=== PATIENT | male | born 1990 | race Caucasian/White ===

== ENCOUNTER 2017-03-04 05:30 | Inpatient (IN) | payer BC ==
[2017-03-04] MEDS ORDERED: HYDROmorphone 1 MG/ML Syringe IVPUSH ONE (06:07)
[2017-03-04] MEDS ORDERED: Ondansetron 4 MG/2 ML SDV IVPUSH ONE (06:07)
[2017-03-04] MEDS ORDERED: Sodium Chloride 0.9% 1,000 ML IV SCH ×2 (06:15→21:00)
[2017-03-04] MEDS ORDERED: Diatrizoate Meglumine/Diatrizoate Sodium 37% 120 ML Bottle PO ONE (07:04)
[2017-03-04] MEDS ORDERED: Iopamidol 755 Mg/ML 100 ML Bottle IVPUSH ONE (07:04)
--- NOTE | 2017-03-04 07:04 | EDM.PDOC ---
<Len Castellon - Last Filed: 03/04/17 06:59> ED HPI GENERAL MEDICAL PROBLEM - General Chief Complaint: Abdominal Pain Stated Complaint: ABDOMINAL PAIN Time Seen by Provider: 03/04/17 05:42 Source of Information: Reports: Patient, RN Notes Reviewed History Limitations: Reports: No Limitations - History of Present Illness INITIAL COMMENTS - FREE TEXT/NARRATIVE: The patient states that he developed left upper quadrant pain around 22:00 last night. It is sharp and bloating in character. It is constant, but getting worse. It does not radiate. He has had nausea and vomiting to the point of dry heaves. It is worse with any movement, including breathing, as well as drinking water. He is most comfortable if he remains still. No recent fever, constipation , diarrhea, or urinary symptoms. No prior similar symptoms. The patient has not attempted any home remedies. The patient does not have a PCP. Left Middle Abdomen Pain Score (Numeric/FACES): 10 - Related Data Allergies Allergy/AdvReac Type Severity Reaction Status Date / Time No Known Allergies Allergy Verified 03/04/17 05:41 Home Meds: Home Meds . 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) ED ROS GENERAL - Review of Systems Review Of Systems: See Below Constitutional: Reports: No Symptoms HEENT: Reports: No Symptoms Respiratory: Reports: No Symptoms Cardiovascular: Reports: No Symptoms Endocrine: Reports: No Symptoms GI/Abdominal: Reports: No Symptoms : Reports: No Symptoms Musculoskeletal: Reports: No Symptoms Skin: Reports: No Symptoms Neurological: Reports: No Symptoms Psychiatric: Reports: No Symptoms Hematologic/Lymphatic: Reports: No Symptoms Immunologic: Reports: No Symptoms ED EXAM, GI/ABD - Physical Exam Exam: See Below Exam Limited By: No Limitations General Appearance: Alert, WD/WN, Moderate Distress (Appears quite uncomfortable ) Eyes: Bilateral: Normal Appearance, EOMI Ears: Normal External Exam, Hearing Grossly Normal Nose: Normal Inspection, No Blood Throat/Mouth: Normal Inspection, Normal Lips, Normal Voice, No Airway Compromise Head: Atraumatic, Normocephalic Neck: Normal Inspection, Full Range of Motion Respiratory/Chest: No Respiratory Distress, Lungs Clear, Normal Breath Sounds, No Accessory Muscle Use Cardiovascular: Normal Peripheral Pulses, Regular Rate, Rhythm, No Gallop, No JVD, No Murmur, No Rub GI/Abdominal Exam: Normal Bowel Sounds, Soft, No Organomegaly, No Distention, No Abnormal Bruit, No Mass, Pelvis Stable, Tender (Considerable tenderness to the left upper quadrant. Nontender elsewhere.). No: Rigid, Rebound (Male) Exam: Deferred Rectal (Males) Exam: Deferred Back Exam: Normal Inspection, Full Range of Motion. No: CVA Tenderness (L), CVA Tenderness (R) Extremities: Normal Inspection, Normal Range of Motion, No Pedal Edema, Normal Capillary Refill Neurological: Alert, Oriented, Normal Cognition, No Motor/Sensory Deficits Psychiatric: Normal Affect Skin Exam: Warm, Dry, Intact, Normal Color, No Rash Lymphatic: No Adenopathy Course - Vital Signs Last Recorded V/S: Last Vital Signs Temp 36.2 C 03/04/17 05:37 Pulse 86 03/04/17 05:37 Resp 20 03/04/17 09:34 BP 134/85 03/04/17 05:37 Pulse Ox 99 03/04/17 09:34 - Orders/Labs/Meds Orders: Active Orders 24 hr Category Date Time Status Admission Status [Patient Status] [ADT] Routine ADT 03/04/17 09:53 Active Communication Order [RC] ROUTINE Care 03/04/17 10:29 Active Cooling Warming Measures [RC] ASDIRECTED Care 03/04/17 10:29 Active Pulse Oximetry [RC] ASDIRECTED Care 03/04/17 10:29 Active Verify Patient Consent Obtain [RC] ASDIRECTED Care 03/04/17 09:36 Active Vital Signs [RC] Q15M Care 03/04/17 10:29 Active HYDROmorphone [Dilaudid] Med 03/04/17 11:30 Active 0.5 mg IVPUSH Q15M PRN Meperidine [Demerol] Med 03/04/17 10:29 Active 12.5 mg IVPUSH ONETIME PRN Ondansetron [Zofran] Med 03/04/17 10:29 Active 4 mg IVPUSH ONETIME PRN Sodium Chloride 0.9% [Normal Saline] 1,000 ml Med 03/04/17 06:15 Active IV ASDIRECTED fentaNYL [Sublimaze] Med 03/04/17 10:29 Active 50 mcg IVPUSH Q5M PRN Schedule Procedure [COMM] Urgent Oth 03/04/17 09:35 Ordered Medication Orders Fentanyl (Sublimaze) 50 mcg IVPUSH Q5M PRN PRN Reason: Pain Stop: 03/04/17 18:00 Hydromorphone HCl (Dilaudid) 0.5 mg IVPUSH Q15M PRN PRN Reason: severe pain Stop: 03/04/17 11:46 Sodium Chloride (Normal Saline) 1,000 mls @ 150 mls/hr IV ASDIRECTED GLO Last Admin: 03/04/17 06:16 Dose: 150 mls/hr Meperidine HCl (Demerol) 12.5 mg IVPUSH ONETIME PRN PRN Reason: shivering Stop: 03/05/17 10:30 Ondansetron HCl (Zofran) 4 mg IVPUSH ONETIME PRN PRN Reason: Nausea/Vomiting Stop: 03/04/17 18:00 Labs: Laboratory Tests 03/04/17 03/04/17 03/04/17 Range/Units 05:52 05:52 09:50 WBC 13.04 H (4.23-9.07) K/mm3 RBC 6.62 H (4.63-6.08) M/mm3 Hgb 18.6 H (13.7-17.5) gm/L Hct 53.2 H (40.1-51.0) % MCV 80.4 (79.0-92.2) fl MCH 28.1 (25.7-32.2) pg MCHC 35.0 (32.2-35.5) g/dl RDW Std Deviation 46.9 H (35.1-43.9) fL Plt Count 194 (163-337) K/mm3 MPV 11.8 (9.4-12.3) fl Neutrophils % (Manual) 91 H (40-60) % Band Neutrophils % 2 (0-10) % Lymphocytes % (Manual) 4 L (20-40) % Atypical Lymphs % 0 % Monocytes % (Manual) 3 (2-10) % Eosinophils % (Manual) 0 L (0.8-7.0) % Basophils % (Manual) 0 L (0.2-1.2) Platelet Estimate Adequate Plt Morphology Comment Normal RBC Morph Comment Normal Sodium 141 (136-145) mEq/L Potassium 4.1 (3.5-5.1) mEq/L Chloride 103 (98-107) mEq/L Carbon Dioxide 26 (21-32) mEq/L Anion Gap 16.1 H (5-15) BUN 15 (7-18) mg/dL Creatinine 1.4 H (0.7-1.3) mg/dL Est Cr Clr Drug Dosing 78.04 mL/min Estimated GFR (MDRD) > 60 (>60) mL/min BUN/Creatinine Ratio 10.7 L (14-18) Glucose 113 H (74-106) mg/dL Calcium 10.1 (8.5-10.1) mg/dL Total Bilirubin 0.9 (0.2-1.0) mg/dL AST 26 (15-37) U/L ALT 33 (16-63) U/L Alkaline Phosphatase 58 (46-116) U/L Total Protein 8.8 H (6.4-8.2) g/dl Albumin 5.2 H (3.4-5.0) g/dl Globulin 3.6 gm/dL Albumin/Globulin Ratio 1.4 (1-2) Lipase 113 (73-393) U/L Urine Color Yellow (Yellow) Urine Appearance Clear (Clear) Urine pH 7.5 (5.0-8.0) Ur Specific [place] 1.015 (1.005-1.030) Urine Protein Negative (Negative) Urine Glucose (UA) Negative (Negative) Urine Ketones 2+ H (Negative) Urine Occult Blood Negative (Negative) Urine Nitrite Negative (Negative) Urine Bilirubin Negative (Negative) Urine Urobilinogen 0.2 (0.2-1.0) Ur Leukocyte Esterase Negative (Negative) Urine RBC Not seen (0-5) /hpf Urine WBC Not seen (0-5) /hpf Ur Epithelial Cells 0-5 (0-5) /hpf Amorphous Sediment Few H (NOT SEEN) /hpf Urine Bacteria Few (FEW) /hpf Urine Mucus Not seen (FEW) /hpf Urine Trichomonas Not seen Meds: Medications Generic Name Dose Route Start Last Admin Trade Name Freq PRN Reason Stop Dose Admin Fentanyl 50 mcg 03/04/17 10:29 Sublimaze IVPUSH 03/04/17 18:00 Q5M PRN Pain Hydromorphone HCl 0.5 mg 03/04/17 11:30 Dilaudid IVPUSH 03/04/17 11:46 Q15M PRN severe pain Sodium Chloride 1,000 mls @ 150 mls/hr 03/04/17 06:15 03/04/17 06:16 Normal Saline IV 150 mls/hr ASDIRECTED GLO Administration Meperidine HCl 12.5 mg 03/04/17 10:29 Demerol IVPUSH 03/05/17 10:30 ONETIME PRN shivering Ondansetron HCl 4 mg 03/04/17 10:29 Zofran IVPUSH 03/04/17 18:00 ONETIME PRN Nausea/Vomiting Discontinued Medications Generic Name Dose Route Start Last Admin Trade Name Freq PRN Reason Stop Dose Admin Bupivacaine HCl Confirm 03/04/17 09:33 03/04/17 10:23 Marcaine 0.25% Administered 03/04/17 09:34 30 ml Dose Administration 30 ml .ROUTE .STK-MED ONE Dexamethasone Confirm 03/04/17 11:03 Dexamethasone Administered 03/04/17 11:04 Dose 20 mg .ROUTE .STK-MED ONE Diatrizoate Meglum/Diatrizoate Sod 90 ml 03/04/17 07:04 03/04/17 07:48 Gastrografin 37% PO 03/04/17 07:05 90 ml ONETIME ONE Administration Fentanyl Confirm 03/04/17 09:47 Sublimaze Administered 03/04/17 09:48 Dose 250 mcg .ROUTE .STK-MED ONE Hydromorphone HCl 1 mg 03/04/17 06:07 03/04/17 06:18 Dilaudid IVPUSH 03/04/17 06:08 1 mg ONETIME ONE Administration Hydromorphone HCl Confirm 03/04/17 10:53 Dilaudid Administered 03/04/17 10:54 Dose 1 mg .ROUTE .STK-MED ONE Sodium Chloride 1,000 mls @ 1,000 mls/hr 03/04/17 07:28 Normal Saline IV 03/04/17 08:27 ONETIME ONE Lidocaine HCl Confirm 03/04/17 09:46 Xylocaine-Mpf 1% Administered 03/04/17 09:47 Dose 4 mls @ as directed .ROUTE .STK-MED ONE Lactated Ringer's Confirm 03/04/17 09:40 Ringers, Lactated Administered 03/04/17 09:41 Dose 1,000 mls @ as directed .ROUTE .STK-MED ONE Cefoxitin Sodium 2 gm/ Premix 50 mls @ 100 mls/hr 03/04/17 10:20 IV 03/04/17 10:49 ONETIME ONE Lactated Ringer's Confirm 03/04/17 10:53 Ringers, Lactated Administered 03/04/17 10:54 Dose 1,000 mls @ as directed .ROUTE .STK-MED ONE Iopamidol 100 ml 03/04/17 07:04 03/04/17 07:48 Isovue-370 (76%) IVPUSH 03/04/17 07:05 100 ml ONETIME ONE Administration Midazolam HCl Confirm 03/04/17 09:46 Versed 1 Mg/Ml Administered 03/04/17 09:47 Dose 2 mg .ROUTE .STK-MED ONE Ondansetron HCl 4 mg 03/04/17 06:07 03/04/17 06:17 Zofran IVPUSH 03/04/17 06:08 4 mg ONETIME ONE Administration Ondansetron HCl Confirm 03/04/17 09:46 Zofran Administered 03/04/17 09:47 Dose 4 mg .ROUTE .STK-MED ONE Propofol Confirm 03/04/17 09:46 Diprivan 20 Ml Administered 03/04/17 09:47 Dose 200 mg .ROUTE .STK-MED ONE Rocuronium [place] Confirm 03/04/17 09:46 Zemuron Administered 03/04/17 09:47 Dose 50 mg .ROUTE .STK-MED ONE - Re-Assessments/Exams Free Text/Narrative Re-Assessment/Exam: 03/04/17 07:[address] Lenka Bull, and care of the patient turned over to her at this time, for change of shift. Departure - Departure Disposition: DC/Tfer to [facility] Clinical Impression: Small bowel obstruction - Discharge Information <Norma Bull - Last Filed: 03/04/17 11:02> Course - Re-Assessments/Exams Free Text/Narrative Re-Assessment/Exam: 03/04/17 07:31 Patient signed out to me by Dr. Castellon pending abdominal CT, re-eval. Briefly this is a previously healthy 26-year-old male who presents with sudden onset left upper quadrant pain that started about 9 hours ago while at rest. Pain is left upper abdomen, sharp, severe, worse with movement. Patient vomited at home this did not relieve his symptoms. Still feels mildly nauseated. Currently more comfortable after given Dilaudid here. No diarrhea. No urinary symptoms. No cough or shortness of breath. He does have pain with inspiration. On exam, he is well appearing, lungs clear, no CVA tenderness, moderate to severe tenderness in the left upper quadrant area, abdomen otherwise nontender. Chest x -ray ordered to eval for possible air under the diaphragm. CT scan pending. We' ll continue to observe and reevaluate once these studies are complete. 03/04/17 09:25 CT shows small bowel obstruction, possible internal hernia. Discussed with Dr. Jasso who is currently at the bedside. Departure - Departure Time of Disposition: 11:01
[2017-03-04] MEDS ORDERED: Sodium Chloride 0.9% 1,000 ML IV ONE (07:28)
--- NOTE | 2017-03-04 07:49 | CR ---
Chest: 2 views of the chest were obtained. Comparison: No previous chest x-ray. Heart size and mediastinum are normal. Lungs are clear. Bony structures appear within normal limits for the patient's age. Impression: 1. Nothing acute is identified on 2 view chest x-ray. Diagnostic code #1
--- NOTE | 2017-03-04 08:05 | CT ---
CT abdomen and pelvis Technique: Multiple axial sections were obtained from above the dome of the diaphragm inferiorly through the pubic symphysis. Intravenous and oral contrast was utilized. Incomplete small bowel opacification is noted. Comparison: No previous abdominal imaging is available. Findings: Visualized lung bases are clear. Liver shows no focal parenchymal abnormality. Spleen appears within normal limits. Adrenal glands show no nodule. Pancreas is within normal limits. Kidneys show symmetric contrast enhancement without hydronephrosis or mass. Aorta shows no aneurysmal dilatation. No retroperitoneal adenopathy or mesenteric abnormalities are seen. No pelvic mass or adenopathy is seen. There is a mild amount of free fluid being seen within the pelvis. Dilated small bowel loops are seen within the mid abdomen. Proximal jejunum is not dilated and distal ileal loops are not dilated. Difficult to exclude an internal hernia as the etiology for the obstruction. Small bowel loops are dilated up to 3.5 cm. Bone window settings were reviewed which appears within normal limits for the patient's age. Small fat-containing umbilical hernia is incidentally noted. Impression: 1. Mid small bowel dilatation up to 3.5 cm. This has the appearance of small bowel obstruction and difficult to exclude an internal hernia as the etiology. Proximal jejunal and distal ileal loops show no dilatation. 2. Fluid within the pelvis most likely reactive from the small bowel process. Diagnostic code #5
--- NOTE | 2017-03-04 09:31 | PCM.PREANE ---
Preanesthetic Assessment - Procedure Proposed Procedure: Exploratory laparotomy for SBO - Anesthesia/Transfusion/Family Hx Anesthesia History: No Prior Anesthesia Family History of Anesthesia Reaction: No Transfusion History: No Prior Transfusion(s) - Review of Systems General: No Symptoms Pulmonary: No Symptoms Cardiovascular: No Symptoms Gastrointestinal: Abdominal Pain Neurological: No Symptoms Other: Reports: None - Physical Assessment O2 Sat by Pulse Oximetry: 99 Respiratory Rate: 20 Vital Signs: Last Vital Signs Temp 36.2 C 03/04/17 05:37 Pulse 86 03/04/17 05:37 Resp 20 03/04/17 05:37 BP 134/85 03/04/17 05:37 Pulse Ox 99 03/04/17 05:37 Height: 1.73 m Weight: 102.058 kg ASA Class: 1E Mental Status: Alert & Oriented x3 Airway Class: Mallampati = 1 Dentition: Reports: Normal Dentition Thyro-Mental Finger Breadths: 3 Mouth Opening Finger Breadths: 3 ROM/Head Extension: Full Lungs: Clear to Auscultation, Normal Respiratory Effort Cardiovascular: Regular Rate, Regular Rhythm - Lab Values: Laboratory Last Values WBC 13.04 K/mm3 (4.23-9.07) H 03/04/17 05:52 RBC 6.62 M/mm3 (4.63-6.08) H 03/04/17 05:52 Hgb 18.6 gm/L (13.7-17.5) H 03/04/17 05:52 Hct 53.2 % (40.1-51.0) H 03/04/17 05:52 MCV 80.4 fl (79.0-92.2) 03/04/17 05:52 MCH 28.1 pg (25.7-32.2) 03/04/17 05:52 MCHC 35.0 g/dl (32.2-35.5) 03/04/17 05:52 RDW Std Deviation 46.9 fL (35.1-43.9) H 03/04/17 05:52 Plt Count 194 K/mm3 (163-337) 03/04/17 05:52 MPV 11.8 fl (9.4-12.3) 03/04/17 05:52 Neutrophils % (Manual) 91 % (40-60) H 03/04/17 05:52 Band Neutrophils % 2 % (0-10) 03/04/17 05:52 Lymphocytes % (Manual) 4 % (20-40) L 03/04/17 05:52 Atypical Lymphs % 0 % 03/04/17 05:52 Monocytes % (Manual) 3 % (2-10) 03/04/17 05:52 Eosinophils % (Manual) 0 % (0.8-7.0) L 03/04/17 05:52 Basophils % (Manual) 0 (0.2-1.2) L 03/04/17 05:52 Platelet Estimate Adequate 03/04/17 05:52 Plt Morphology Comment Normal 03/04/17 05:52 RBC Morph Comment Normal 03/04/17 05:52 Sodium 141 mEq/L (136-145) 03/04/17 05:52 Potassium 4.1 mEq/L (3.5-5.1) 03/04/17 05:52 Chloride 103 mEq/L (98-107) 03/04/17 05:52 Carbon Dioxide 26 mEq/L (21-32) 03/04/17 05:52 Anion Gap 16.1 (5-15) H 03/04/17 05:52 BUN 15 mg/dL (7-18) 03/04/17 05:52 Creatinine 1.4 mg/dL (0.7-1.3) H 03/04/17 05:52 Est Cr Clr Drug Dosing 78.04 mL/min 03/04/17 05:52 Estimated GFR (MDRD) > 60 mL/min (>60) 03/04/17 05:52 BUN/Creatinine Ratio 10.7 (14-18) L 03/04/17 05:52 Glucose 113 mg/dL (74-106) H 03/04/17 05:52 Calcium 10.1 mg/dL (8.5-10.1) 03/04/17 05:52 Total Bilirubin 0.9 mg/dL (0.2-1.0) 03/04/17 05:52 AST 26 U/L (15-37) 03/04/17 05:52 ALT 33 U/L (16-63) 03/04/17 05:52 Alkaline Phosphatase 58 U/L (46-116) 03/04/17 05:52 Total Protein 8.8 g/dl (6.4-8.2) H 03/04/17 05:52 Albumin 5.2 g/dl (3.4-5.0) H 03/04/17 05:52 Globulin 3.6 gm/dL 03/04/17 05:52 Albumin/Globulin Ratio 1.4 (1-2) 03/04/17 05:52 Lipase 113 U/L (73-393) 03/04/17 05:52 - Allergies Allergies/Adverse Reactions: Allergies Allergy/AdvReac Type Severity Reaction Status Date / Time No Known Allergies Allergy Verified 03/04/17 05:41 - Blood Blood Available: No Product(s) Available: None - Anesthesia Plan Pre-Op Medication Ordered: None - Acknowledgements Anesthesia Type Planned: General Anesthesia Pt an Appropriate Candidate for the Planned Anesthesia: Yes Alternatives and Risks of Anesthesia Discussed w Pt/Guardian: Yes Pt/Guardian Understands and Agrees with Anesthesia Plan: Yes PreAnesthesia Questionnaire Psychiatric History: Reports: Anxiety (untreated) - SUBSTANCE USE Smoking Status *Q: Never Smoker Recreational Drug Use History: Yes Recreational Drug Type: Reports: Marijuana/Hashish - HOME MEDS Home Medications: Home Meds . [No Known Home Meds] 03/04/17 [History] - CURRENT (IN HOUSE) MEDS Current Meds: Current Medications Sodium Chloride (Normal Saline) 1,000 mls @ 150 mls/hr IV ASDIRECTED [facility] Last Admin: 03/04/17 06:16 Dose: 150 mls/hr Discontinued Medications Diatrizoate Meglum/Diatrizoate Sod (Gastrografin 37%) 90 ml PO ONETIME ONE Stop: 03/04/17 07:05 Last Admin: 03/04/17 07:48 Dose: 90 ml Hydromorphone HCl (Dilaudid) 1 mg IVPUSH ONETIME ONE Stop: 03/04/17 06:08 Last Admin: 03/04/17 06:18 Dose: 1 mg Sodium Chloride (Normal Saline) 1,000 mls @ 1,000 mls/hr IV ONETIME ONE Stop: 03/04/17 08:27 Iopamidol (Isovue-370 (76%)) 100 ml IVPUSH ONETIME ONE Stop: 03/04/17 07:05 Last Admin: 03/04/17 07:48 Dose: 100 ml Ondansetron HCl (Zofran) 4 mg IVPUSH ONETIME ONE Stop: 03/04/17 06:08 Last Admin: 03/04/17 06:17 Dose: 4 mg
[2017-03-04] MEDS ORDERED: Bupivacaine 0.25% 30 ML SDV ONE (09:33)
[2017-03-04] MEDS ORDERED: Lactated Ringers 1,000 ML ONE ×3 (09:40→11:51)
[2017-03-04] MEDS ORDERED: Midazolam 1 MG/ML 2 ML SDV ONE (09:46)
[2017-03-04] MEDS ORDERED: Lidocaine 1% 4 ML ONE (09:46)
[2017-03-04] MEDS ORDERED: Ondansetron 4 MG/2 ML SDV ONE (09:46)
[2017-03-04] MEDS ORDERED: Rocuronium 50 MG/5 ML Vial ONE ×2 (09:46→11:18)
[2017-03-04] MEDS ORDERED: Propofol 200 MG/20 ML SDV ONE (09:46)
[2017-03-04] MEDS ORDERED: fentaNYL 250 MCG/5 ML SDV ONE (09:47)
[2017-03-04] MEDS ORDERED: cefOXitin 2 GM in Premix Bag 1 BAG IV ONE (10:20)
[2017-03-04] MEDS ORDERED: Meperidine PF 50 MG/ML Syringe IVPUSH PRN (10:29)
[2017-03-04] MEDS ORDERED: Ondansetron 4 MG/2 ML SDV IVPUSH PRN ×2 (10:29→11:58)
[2017-03-04] MEDS ORDERED: HYDROmorphone 1 MG/ML Syringe ONE (10:53)
[2017-03-04] MEDS ORDERED: Dexamethasone 4 MG/ML 5 ML MDV ONE (11:03)
[2017-03-04] MEDS ORDERED: Neostigmine Methylsulfate 1 MG/ML 5 ML Syringe ONE (11:28)
[2017-03-04] MEDS ORDERED: fentaNYL 100 MCG/2 ML SDV ONE (11:38)
[2017-03-04] MEDS ORDERED: Bupivacaine 0.5% 30 ML SDV ONE (11:49)
[2017-03-04] MEDS ORDERED: Ketorolac 30 MG/ML SDV ONE (11:55)
--- NOTE | 2017-03-04 12:00 | PCM.OPNOTE ---
- General Post-Op/Procedure Note Date of Surgery/Procedure: 03/04/17 Operative Procedure(s): laproscopy/laprotomy derotation of small bowel Pre Op Diagnosis: sbo Post-Op Diagnosis: Same Anesthesia Technique: General ET Tube Primary Surgeon: Agustin Jasso EBL in mLs: 100 Complications: None Condition: Good
--- NOTE | 2017-03-04 12:00 | PCM.POSTAN ---
POST ANESTHESIA ASSESSMENT - MENTAL STATUS Mental Status: Alert, Oriented - VITAL SIGNS Pulse Rate: 110 SaO2: 94 Resp Rate: 11 Blood Pressure: 115/80 Temperature: 98.9 F - RESPIRATORY Respiratory Status: respiratory rate WNL, Airway Patent, O2 Saturation Stable, Supplemental Oxygen - CARDIOVASCULAR CV Status: Pulse Rate WNL, Blood Pressure Stable - GASTROINTESTINAL GI Status: No Symptoms - PAIN Pain Score: 0 - POST OP HYDRATION Hydration Status: Adequate & Stable
[2017-03-04] MEDS: HYDROmorphone 0.5 MG/0.5 ML Syringe IVPUSH PRN ×2 (12:10→12:29)
[2017-03-04] MEDS: fentaNYL 100 MCG/2 ML SDV IVPUSH PRN ×2 (12:19→12:43)
[2017-03-04] MEDS: Lactated Ringers 1,000 ML IV SCH ×3 (14:11→23:52)
[2017-03-04] MEDS: HYDROmorphone 1 MG/ML Syringe IVPUSH PRN ×3 (14:11→19:37)
[2017-03-04] MEDS: Ketorolac 30 MG/ML SDV IVPUSH SCH (17:07)
--- NOTE | 2017-03-04 17:58 | HP ---
DATE OF ADMISSION: 03/04/2017 HISTORY OF PRESENT ILLNESS: This is a 26-year-old who came in through the emergency room early this morning, about 6, with pain in the left upper quadrant. It began about 10 p.m. after he ate and gradually increased in intensity associated with nausea, vomiting, abdominal distention, and inability to pass flatus. Pain stays and does not radiate. It comes and goes, crampy in nature. He was quite a bit distressed when he came in this morning. He was given some Dilaudid. CT scan was then performed showing dilated mid loops which suggested that internal hernia could not be ruled out. The patient has not had any previous surgeries or trauma, and no inciting cause for this were evident on the history. REVIEW OF SYSTEMS: No chest pain, shortness of breath, cough, hoarseness, wheezing, fainting, weakness, numbness, or convulsions. He does have nausea and vomiting. SOCIAL HISTORY: He does use some recreational drugs, marijuana specifically, but never smoked other than marijuana. He does weight lifting and takes potassium tablets and magnesium tablets. FAMILY HISTORY: Negative. CURRENT MEDICATIONS: As stated above. PHYSICAL EXAMINATION: GENERAL: Reveals alert and cooperative male. VITAL SIGNS: Temperature 36, pulse 86, respirations 20, blood pressure 134/86, and pulse 99. HEENT: Eyes sclerae white. Extraocular muscle motion normal. Oral cavity, healthy mucous membrane with mouth and tongue. NECK: Supple. No nodes. No thyromegaly. LUNGS: Clear. No rales, rhonchi, fremitus, or dullness. HEART: Tones regular rate. No S3, S4, jugular venous distention, or murmurs. ABDOMEN: Tenderness, guarding of the left upper quadrant. The rest of the quadrants are soft. No umbilical hernia, inguinal hernias, or ventral hernias noted. Bowel sounds are quiet. Mild abdominal distention. EXTREMITIES: Upper and lower extremities, no angulation deformities. MUSCULOSKELETAL: Normal. PSYCHIATRIC: Alert and cooperative. Cranial nerves 3 through 12 intact. No sensorineural deficit. LABORATORY DATA: White count 13,000, hemoglobin 18, 2 bands were noted, platelet count normal. Potassium is 4.1, CO2 is 26. BUN is 15 and creatinine was slightly elevated at 1.4. ASSESSMENT: 1. Some dehydration. 2. Abdominal pain with abdominal distention suggesting adhesions or internal hernia, small bowel obstruction. PLAN: To proceed with laparoscopy given the lack of any inciting cause for his discomfort. His electrolytes suggested a little hemoconcentration and dehydration. Options given and discussed with the patient, medical treatment, NG suction, and the options of travel to a larger center. The patient wishes to stay here and consents to laparoscopy or possible laparotomy for bowel obstruction. Risks and complications discussed with the patient. He understands and consents. MARY /[id number]
[2017-03-05] MEDS: Ketorolac 30 MG/ML SDV IVPUSH SCH ×3 (00:03→09:42)
[2017-03-05] MEDS: HYDROmorphone 1 MG/ML Syringe IVPUSH PRN ×4 (04:56→20:48)
[2017-03-05] MEDS: Lactated Ringers 1,000 ML IV SCH ×3 (04:56→14:52)
--- NOTE | 2017-03-05 09:45 | PCM.SURGPN ---
- General Info Date of Service: 03/05/17 POD#: 1 Post-Op Diagnosis: SBO Functional Status: Reports: Pain Controlled - Review of Systems General: Reports: Other (incisional pain) HEENT: Reports: No Symptoms Pulmonary: Reports: No Symptoms Cardiovascular: Reports: No Symptoms Gastrointestinal: Reports: Other (abdominal bloating having some flatus ) Genitourinary: Reports: No Symptoms - Patient Data Vitals - most recent: Last Vital Signs Temp 98.2 F 03/05/17 08:00 Pulse 92 03/05/17 08:00 Resp 12 03/05/17 08:00 BP 154/76 H 03/05/17 08:00 Pulse Ox 97 03/05/17 08:00 Weight - most recent: 102.058 kg I&O - last 24 hours: Intake & Output 03/04/17 03/05/17 03/05/17 23:59 07:59 15:59 Intake Total 600 2934 Output Total 100 1225 Balance 500 1709 Lab Results last 24 hrs: Laboratory Results - last 24 hr 03/05/17 03/05/17 Range/Units 06:00 06:00 WBC 9.77 H (4.23-9.07) K/mm3 RBC 5.23 (4.63-6.08) M/mm3 Hgb 14.7 (13.7-17.5) gm/L Hct 44.5 (40.1-51.0) % MCV 85.1 (79.0-92.2) fl MCH 28.1 (25.7-32.2) pg MCHC 33.0 (32.2-35.5) g/dl RDW Std Deviation 49.9 H (35.1-43.9) fL Plt Count 162 L (163-337) K/mm3 MPV 12.0 (9.4-12.3) fl Neut % (Auto) 81.3 H (34.0-67.9) % Lymph % (Auto) 8.8 L (21.8-53.1) % [place] % (Auto) 8.9 (5.3-12.2) % Eos % (Auto) 0.7 L (0.8-7.0) Baso % (Auto) 0.1 (0.1-1.2) % Neut # (Auto) 7.94 H (1.78-5.38) K/mm3 Lymph # (Auto) 0.86 L (1.32-3.57) K/mm3 [place] # (Auto) 0.87 H (0.30-0.82) K/mm3 Eos # (Auto) 0.07 (0.04-0.54) K/mm3 Baso # (Auto) 0.01 (0.01-0.08) K/mm3 Manual Slide Review Normal smear Sodium 140 (136-145) mEq/L Potassium 4.6 (3.5-5.1) mEq/L Chloride 104 (98-107) mEq/L Carbon Dioxide 28 (21-32) mEq/L Anion Gap 12.6 (5-15) BUN 11 (7-18) mg/dL Creatinine 1.3 (0.7-1.3) mg/dL Est Cr Clr Drug Dosing 84.04 mL/min Estimated GFR (MDRD) > 60 (>60) mL/min BUN/Creatinine Ratio 8.5 L (14-18) Glucose 111 H (74-106) mg/dL Calcium 8.7 (8.5-10.1) mg/dL Total Bilirubin 0.9 (0.2-1.0) mg/dL AST 24 (15-37) U/L ALT 30 (16-63) U/L Alkaline Phosphatase 38 L (46-116) U/L Total Protein 6.6 (6.4-8.2) g/dl Albumin 3.5 (3.4-5.0) g/dl Globulin 3.1 gm/dL Albumin/Globulin Ratio 1.1 (1-2) Med Orders - Current: Current Medications Heparin Sodium (Porcine) (Heparin Sodium) 5,000 units SUBCUT Q12HR [facility] Hydromorphone HCl (Dilaudid) 1 mg IVPUSH Q2H PRN PRN Reason: Pain Last Admin: 03/05/17 04:56 Dose: 1 mg Lactated Ringer's (Ringers, Lactated) 1,000 mls @ 125 mls/hr IV ASDIRECTED GLO Last Admin: 03/05/17 08:00 Dose: 125 mls/hr Meperidine HCl (Demerol) 12.5 mg IVPUSH ONETIME PRN PRN Reason: shivering Stop: 03/05/17 10:30 Ondansetron HCl (Zofran) 4 mg IVPUSH Q8H PRN PRN Reason: Nausea Discontinued Medications Bupivacaine HCl (Marcaine 0.25%) Confirm Administered Dose 30 ml .ROUTE .STK- MED ONE Stop: 03/04/17 09:34 Last Admin: 03/04/17 10:23 Dose: 8 ml Bupivacaine HCl (Marcaine 0.5%) Confirm Administered Dose 30 ml .ROUTE .STK-MED ONE Stop: 03/04/17 11:50 Dexamethasone (Dexamethasone) Confirm Administered Dose 20 mg .ROUTE .STK-MED ONE Stop: 03/04/17 11:04 Diatrizoate Meglum/Diatrizoate Sod (Gastrografin 37%) 90 ml PO ONETIME ONE Stop: 03/04/17 07:05 Last Admin: 03/04/17 07:48 Dose: 90 ml Fentanyl (Sublimaze) Confirm Administered Dose 250 mcg .ROUTE .STK-MED ONE Stop: 03/04/17 09:48 Fentanyl (Sublimaze) 50 mcg IVPUSH Q5M PRN PRN Reason: Pain Stop: 03/04/17 18:00 Last Admin: 03/04/17 12:43 Dose: 50 mcg Fentanyl (Sublimaze) Confirm Administered Dose 100 mcg .ROUTE .STK-MED ONE Stop: 03/04/17 11:39 Glycopyrrolate () Confirm Administered Dose 1 mg .ROUTE .STK-MED ONE Stop: 03/04/17 11:29 Hydromorphone HCl (Dilaudid) 1 mg IVPUSH ONETIME ONE Stop: 03/04/17 06:08 Last Admin: 03/04/17 06:18 Dose: 1 mg Hydromorphone HCl (Dilaudid) 0.5 mg IVPUSH Q15M PRN PRN Reason: severe pain Stop: 03/04/17 11:46 Last Admin: 03/04/17 12:29 Dose: 0.5 mg Hydromorphone HCl (Dilaudid) Confirm Administered Dose 1 mg .ROUTE .STK-MED ONE Stop: 03/04/17 10:54 Sodium Chloride (Normal Saline) 1,000 mls @ 150 mls/hr IV ASDIRECTED GLO Last Admin: 03/04/17 06:16 Dose: 150 mls/hr Sodium Chloride (Normal Saline) 1,000 mls @ 1,000 mls/hr IV ONETIME ONE Stop: 03/04/17 08:27 Last Admin: 03/04/17 14:17 Dose: Not Given Lidocaine HCl (Xylocaine-Mpf 1%) Confirm Administered Dose 4 mls @ as directed .ROUTE .STK-MED ONE Stop: 03/04/17 09:47 Lactated Ringer's (Ringers, Lactated) Confirm Administered Dose 1,000 mls @ as directed .ROUTE .ST-MED ONE Stop: 03/04/17 09:41 Last Admin: 03/04/17 14:17 Dose: Not Given Cefoxitin Sodium 2 gm/ Premix 50 mls @ 100 mls/hr IV ONETIME ONE Stop: 03/04/17 10:49 Last Admin: 03/04/17 14:17 Dose: Not Given Lactated Ringer's (Ringers, Lactated) Confirm Administered Dose 1,000 mls @ as directed .ROUTE .ST-MED ONE Stop: 03/04/17 10:54 Lactated Ringer's (Ringers, Lactated) Confirm Administered Dose 1,000 mls @ as directed .ROUTE .ST-MED ONE Stop: 03/04/17 11:52 Lactated Ringer's (Ringers, Lactated) 1,000 mls @ 150 mls/hr IV ASDIRECTED [facility] Last Admin: 03/05/17 04:56 Dose: 150 mls/hr Cefoxitin Sodium (Mefoxin In Dextrose,Iso-Osm 2 Gm/50 Ml) Confirm Administered Dose 50 mls @ as directed .ROUTE .ST-MED ONE Stop: 03/04/17 12:24 Sodium Chloride (Normal Saline) 1,000 mls @ 999 mls/hr IV ASDIRECTED [facility] Stop: 03/04/17 22:01 Last Admin: 03/04/17 21:40 Dose: 500 mls/hr Iopamidol (Isovue-370 (76%)) 100 ml IVPUSH ONETIME ONE Stop: 03/04/17 07:05 Last Admin: 03/04/17 07:48 Dose: 100 ml Ketorolac Tromethamine (Toradol) Confirm Administered Dose 30 mg .ROUTE .STK- MED ONE Stop: 03/04/17 11:56 Ketorolac Tromethamine (Toradol) 30 mg IVPUSH Q8H [facility] Stop: 03/05/17 09:31 Last Admin: 03/05/17 02:14 Dose: Not Given Midazolam HCl (Versed 1 Mg/Ml) Confirm Administered Dose 2 mg .ROUTE .STK-MED ONE Stop: 03/04/17 09:47 Neostigmine Methylsulfate (Neostigmine) Confirm Administered Dose 5 mg .ROUTE .STK-MED ONE Stop: 03/04/17 11:29 Ondansetron HCl (Zofran) 4 mg IVPUSH ONETIME ONE Stop: 03/04/17 06:08 Last Admin: 03/04/17 06:17 Dose: 4 mg Ondansetron HCl (Zofran) Confirm Administered Dose 4 mg .ROUTE .STK-MED ONE Stop: 03/04/17 09:47 Ondansetron HCl (Zofran) 4 mg IVPUSH ONETIME PRN PRN Reason: Nausea/Vomiting Stop: 03/04/17 18:00 Propofol (Diprivan 20 Ml) Confirm Administered Dose 200 mg .ROUTE .STK-MED ONE Stop: 03/04/17 09:47 Rocuronium [place] (Zemuron) Confirm Administered Dose 50 mg .ROUTE .STK-MED ONE Stop: 03/04/17 09:47 Rocuronium [place] (Zemuron) Confirm Administered Dose 50 mg .ROUTE .STK-MED ONE Stop: 03/04/17 11:19 - Exam Wound/Incisions: healing well General: alert, oriented Cardiovascular: Regular Rate, Regular Rhythm GI/Abdominal Exam: Other (incisional tenderness and bloating) - Problem List Review Problem List Initiated/Reviewed/Updated: Yes - My Orders Last 24 Hours: Active Orders 24 hr Category Date Time Status Patient Status [ADT] Routine ADT 03/04/17 12:00 Active Ambulate [RC] Q8HPRN Care 03/04/17 13:33 Active Gastrointestinal Tube Mgmt [RC] 04,10,16,22 Care 03/04/17 13:33 Active Intake and Output [RC] 04,16 Care 03/04/17 13:33 Active RT Incentive Spirometry [RC] Q1HWA Care 03/04/17 13:33 Active Turn, Cough, Deep Breathe [RC] Q1HWA Care 03/04/17 13:33 Active Wound Care [RC] QSHIFT Care 03/04/17 13:33 Active Nothing Per Oral Diet [DIET] Diet 03/04/17 Dinner Active CBC W/O DIFF,HEMOGRAM [HEME] MOTH@0700 Lab 03/07/17 07:00 Ordered CBC W/O DIFF,HEMOGRAM [HEME] MOTH@0700 Lab 03/10/17 07:00 Ordered CBC W/O DIFF,HEMOGRAM [HEME] MOTH@0700 Lab 03/14/17 07:00 Ordered CBC W/O DIFF,HEMOGRAM [HEME] MOTH@0700 Lab 03/17/17 07:00 Ordered CBC W/O DIFF,HEMOGRAM [HEME] MOTH@0700 Lab 03/21/17 07:00 Ordered CBC W/O DIFF,HEMOGRAM [HEME] MOTH@0700 Lab 03/24/17 07:00 Ordered CBC WITH AUTO DIFF [HEME] Routine Lab 03/06/17 07:26 Ordered CMP [COMPREHENSIVE METABOLIC PN,CMP] [CHEM] Routine Lab 03/06/17 07:00 Ordered Heparin Sodium Med 03/05/17 21:00 Active 5,000 units SUBCUT Q12HR Lactated Ringers [Ringers, Lactated] 1,000 ml Med 03/05/17 07:45 Active IV ASDIRECTED Resuscitation Status Routine Resus Stat 03/04/17 14:43 Ordered Medication Orders Heparin Sodium (Porcine) (Heparin Sodium) 5,000 units SUBCUT Q12HR GLO Hydromorphone HCl (Dilaudid) 1 mg IVPUSH Q2H PRN PRN Reason: Pain Last Admin: 03/05/17 04:56 Dose: 1 mg Admin: 03/04/17 19:37 Dose: 1 mg Admin: 03/04/17 15:51 Dose: 1 mg Admin: 03/04/17 14:11 Dose: 1 mg Lactated Ringer's (Ringers, Lactated) 1,000 mls @ 125 mls/hr IV ASDIRECTED GLO Last Admin: 03/05/17 08:00 Dose: 125 mls/hr Meperidine HCl (Demerol) 12.5 mg IVPUSH ONETIME PRN PRN Reason: shivering Stop: 03/05/17 10:30 Ondansetron HCl (Zofran) 4 mg IVPUSH Q8H PRN PRN Reason: Nausea - Plan Plan (Free Text/Narrative):: doing well lab reviewed and orders given will start sub q heparin NEFTALI
[2017-03-05] MEDS ORDERED: Phenol 1.4% Oral Spray 20 ML Bottle MUCMEM PRN (16:28)
--- NOTE | 2017-03-05 17:50 | PCM48HPAN ---
Post Anesthesia Note - EVALUATION WITHIN 48HRS OF ANESTHETIC Vital Signs in Normal Range: Yes Patient Participated in Evaluation: Yes Respiratory Function Stable: Yes Airway Patent: Yes Cardiovascular Function Stable: Yes Hydration Status Stable: Yes Pain Control Satisfactory: Yes Nausea and Vomiting Control Satisfactory: Yes Mental Status Recovered: Yes - COMMENTS/OBSERVATIONS Free Text/Narrative:: Patient is OOB doing well at time of assessment. Pain controlled. Only complaint was the NG tube being bothersome. Denied any post anesthesia complications.
[2017-03-05] MEDS: Heparin Sodium 5,000 Units/ML Vial SUBCUT SCH (20:48)
[2017-03-05] MEDS ORDERED: Heparin Sodium 10,000 Units/1 ML MDV SUBCUT SCH (21:00)
[2017-03-06] MEDS: Lactated Ringers 1,000 ML IV SCH ×2 (01:40→14:28)
[2017-03-06] MEDS: HYDROmorphone 1 MG/ML Syringe IVPUSH PRN ×2 (01:40→08:32)
[2017-03-06] MEDS ORDERED: Metoclopramide 10 MG/2 ML SDV IVPUSH ONE (04:48)
[2017-03-06] MEDS ORDERED: Pantoprazole 40 MG Vial IVPUSH ONE (04:49)
[2017-03-06] MEDS: Heparin Sodium 5,000 Units/ML Vial SUBCUT SCH ×2 (08:31→20:38)
--- NOTE | 2017-03-06 11:50 | PCM.SURGPN ---
- General Info Date of Service: 03/06/17 POD#: 2 Functional Status: Reports: Pain Controlled - Review of Systems Pulmonary: Reports: No Symptoms Cardiovascular: Reports: No Symptoms, Other (epigastric pain and NG tube irritation) - Patient Data Vitals - most recent: Last Vital Signs Temp 98.4 F 03/06/17 07:53 Pulse 104 H 03/06/17 07:53 Resp 14 03/06/17 07:53 BP 140/81 03/06/17 07:53 Pulse Ox 97 03/06/17 07:53 Weight - most recent: 102.739 kg I&O - last 24 hours: Intake & Output 03/05/17 03/06/17 03/06/17 23:59 07:59 15:59 Intake Total 1387 1000 Output Total 225 2200 Balance 1162 -1200 Lab Results last 24 hrs: Laboratory Results - last 24 hr 03/06/17 03/06/17 Range/Units 05:59 05:59 WBC 9.25 H (4.23-9.07) K/mm3 RBC 5.19 (4.63-6.08) M/mm3 Hgb 14.6 (13.7-17.5) gm/L Hct 44.1 (40.1-51.0) % MCV 85.0 (79.0-92.2) fl MCH 28.1 (25.7-32.2) pg MCHC 33.1 (32.2-35.5) g/dl RDW Std Deviation 49.3 H (35.1-43.9) fL Plt Count 147 L (163-337) K/mm3 MPV 11.8 (9.4-12.3) fl Neut % (Auto) 70.2 H (34.0-67.9) % Lymph % (Auto) 18.5 L (21.8-53.1) % [place] % (Auto) 8.2 (5.3-12.2) % Eos % (Auto) 2.7 (0.8-7.0) Baso % (Auto) 0.2 (0.1-1.2) % Neut # (Auto) 6.49 H (1.78-5.38) K/mm3 Lymph # (Auto) 1.71 (1.32-3.57) K/mm3 [place] # (Auto) 0.76 (0.30-0.82) K/mm3 Eos # (Auto) 0.25 (0.04-0.54) K/mm3 Baso # (Auto) 0.02 (0.01-0.08) K/mm3 Manual Slide Review Not Reportable Sodium 141 (136-145) mEq/L Potassium 3.6 (3.5-5.1) mEq/L Chloride 103 (98-107) mEq/L Carbon Dioxide 30 (21-32) mEq/L Anion Gap 11.6 (5-15) BUN 10 (7-18) mg/dL Creatinine 1.3 (0.7-1.3) mg/dL Est Cr Clr Drug Dosing 84.04 mL/min Estimated GFR (MDRD) > 60 (>60) mL/min BUN/Creatinine Ratio 7.7 L (14-18) Glucose 90 (74-106) mg/dL Calcium 8.9 (8.5-10.1) mg/dL Total Bilirubin 0.9 (0.2-1.0) mg/dL AST 21 (15-37) U/L ALT 25 (16-63) U/L Alkaline Phosphatase 35 L (46-116) U/L Total Protein 6.7 (6.4-8.2) g/dl Albumin 3.6 (3.4-5.0) g/dl Globulin 3.1 gm/dL Albumin/Globulin Ratio 1.2 (1-2) Med Orders - Current: Current Medications Heparin Sodium (Porcine) (Heparin Sodium) 5,000 units SUBCUT Q12H [facility] Last Admin: 03/06/17 08:31 Dose: 5,000 units Hydromorphone HCl (Dilaudid) 1 mg IVPUSH Q2H PRN PRN Reason: Pain Last Admin: 03/06/17 08:32 Dose: 1 mg Lactated Ringer's (Ringers, Lactated) 1,000 mls @ 75 mls/hr IV ASDIRECTED [facility] Last Admin: 03/06/17 01:40 Dose: 75 mls/hr Ondansetron HCl (Zofran) 4 mg IVPUSH Q8H PRN PRN Reason: Nausea Phenol/Menthol (Chloraseptic) 0 ml MUCMEM Q2H PRN PRN Reason: Sore Throat Last Admin: 03/05/17 16:41 Dose: 1 spray Discontinued Medications Bupivacaine HCl (Marcaine 0.25%) Confirm Administered Dose 30 ml .ROUTE .STK- MED ONE Stop: 03/04/17 09:34 Last Admin: 03/04/17 10:23 Dose: 8 ml Bupivacaine HCl (Marcaine 0.5%) Confirm Administered Dose 30 ml .ROUTE .STK-MED ONE Stop: 03/04/17 11:50 Dexamethasone (Dexamethasone) Confirm Administered Dose 20 mg .ROUTE .STK-MED ONE Stop: 03/04/17 11:04 Diatrizoate Meglum/Diatrizoate Sod (Gastrografin 37%) 90 ml PO ONETIME ONE Stop: 03/04/17 07:05 Last Admin: 03/04/17 07:48 Dose: 90 ml Fentanyl (Sublimaze) Confirm Administered Dose 250 mcg .ROUTE .STK-MED ONE Stop: 03/04/17 09:48 Fentanyl (Sublimaze) 50 mcg IVPUSH Q5M PRN PRN Reason: Pain Stop: 03/04/17 18:00 Last Admin: 03/04/17 12:43 Dose: 50 mcg Fentanyl (Sublimaze) Confirm Administered Dose 100 mcg .ROUTE .STK-MED ONE Stop: 03/04/17 11:39 Glycopyrrolate () Confirm Administered Dose 1 mg .ROUTE .STK-MED ONE Stop: 03/04/17 11:29 Heparin Sodium (Porcine) (Heparin Sodium) 5,000 units SUBCUT Q12HR [facility] Hydromorphone HCl (Dilaudid) 1 mg IVPUSH ONETIME ONE Stop: 03/04/17 06:08 Last Admin: 03/04/17 06:18 Dose: 1 mg Hydromorphone HCl (Dilaudid) 0.5 mg IVPUSH Q15M PRN PRN Reason: severe pain Stop: 03/04/17 11:46 Last Admin: 03/04/17 12:29 Dose: 0.5 mg Hydromorphone HCl (Dilaudid) Confirm Administered Dose 1 mg .ROUTE .STK-MED ONE Stop: 03/04/17 10:54 Sodium Chloride (Normal Saline) 1,000 mls @ 150 mls/hr IV ASDIRECTED GLO Last Admin: 03/04/17 06:16 Dose: 150 mls/hr Sodium Chloride (Normal Saline) 1,000 mls @ 1,000 mls/hr IV ONETIME ONE Stop: 03/04/17 08:27 Last Admin: 03/04/17 14:17 Dose: Not Given Lidocaine HCl (Xylocaine-Mpf 1%) Confirm Administered Dose 4 mls @ as directed .ROUTE .[facility] ONE Stop: 03/04/17 09:47 Lactated Ringer's (Ringers, Lactated) Confirm Administered Dose 1,000 mls @ as directed .ROUTE .[facility] ONE Stop: 03/04/17 09:41 Last Admin: 03/04/17 14:17 Dose: Not Given Cefoxitin Sodium 2 gm/ Premix 50 mls @ 100 mls/hr IV ONETIME ONE Stop: 03/04/17 10:49 Last Admin: 03/04/17 14:17 Dose: Not Given Lactated Ringer's (Ringers, Lactated) Confirm Administered Dose 1,000 mls @ as directed .ROUTE .[facility] ONE Stop: 03/04/17 10:54 Lactated Ringer's (Ringers, Lactated) Confirm Administered Dose 1,000 mls @ as directed .ROUTE .[facility] ONE Stop: 03/04/17 11:52 Lactated Ringer's (Ringers, Lactated) 1,000 mls @ 150 mls/hr IV ASDIRECTED [facility] Last Admin: 03/05/17 04:56 Dose: 150 mls/hr Cefoxitin Sodium (Mefoxin In Dextrose,Iso-Osm 2 Gm/50 Ml) Confirm Administered Dose 50 mls @ as directed .ROUTE .[facility] ONE Stop: 03/04/17 12:24 Sodium Chloride (Normal Saline) 1,000 mls @ 999 mls/hr IV ASDIRECTED [facility] Stop: 03/04/17 22:01 Last Admin: 03/04/17 21:40 Dose: 500 mls/hr Lactated Ringer's (Ringers, Lactated) 1,000 mls @ 125 mls/hr IV ASDIRECTED [facility] Last Admin: 03/05/17 14:52 Dose: 125 mls/hr Iopamidol (Isovue-370 (76%)) 100 ml IVPUSH ONETIME ONE Stop: 03/04/17 07:05 Last Admin: 03/04/17 07:48 Dose: 100 ml Ketorolac Tromethamine (Toradol) Confirm Administered Dose 30 mg .ROUTE .STK- MED ONE Stop: 03/04/17 11:56 Ketorolac Tromethamine (Toradol) 30 mg IVPUSH Q8H GLO Stop: 03/05/17 09:31 Last Admin: 03/05/17 09:42 Dose: 30 mg Meperidine HCl (Demerol) 12.5 mg IVPUSH ONETIME PRN PRN Reason: shivering Stop: 03/05/17 10:30 Metoclopramide HCl (Reglan) 10 mg IVPUSH ONETIME ONE Stop: 03/06/17 04:49 Last Admin: 03/06/17 05:15 Dose: 10 mg Midazolam HCl (Versed 1 Mg/Ml) Confirm Administered Dose 2 mg .ROUTE .STK-MED ONE Stop: 03/04/17 09:47 Neostigmine Methylsulfate (Neostigmine) Confirm Administered Dose 5 mg .ROUTE .STK-MED ONE Stop: 03/04/17 11:29 Ondansetron HCl (Zofran) 4 mg IVPUSH ONETIME ONE Stop: 03/04/17 06:08 Last Admin: 03/04/17 06:17 Dose: 4 mg Ondansetron HCl (Zofran) Confirm Administered Dose 4 mg .ROUTE .STK-MED ONE Stop: 03/04/17 09:47 Ondansetron HCl (Zofran) 4 mg IVPUSH ONETIME PRN PRN Reason: Nausea/Vomiting Stop: 03/04/17 18:00 Pantoprazole Sodium (Protonix Iv) 40 mg IVPUSH ONETIME ONE Stop: 03/06/17 04:50 Last Admin: 03/06/17 05:15 Dose: 40 mg Propofol (Diprivan 20 Ml) Confirm Administered Dose 200 mg .ROUTE .STK-MED ONE Stop: 03/04/17 09:47 Rocuronium [place] (Zemuron) Confirm Administered Dose 50 mg .ROUTE .STK-MED ONE Stop: 03/04/17 09:47 Rocuronium [place] (Zemuron) Confirm Administered Dose 50 mg .ROUTE .STK-MED ONE Stop: 03/04/17 11:19 - Exam General: alert, oriented Lungs: Clear to Auscultation, Normal Respiratory Effort Cardiovascular: Regular Rate, Regular Rhythm GI/Abdominal Exam: Soft, No Distention, Other (passing flatus ) - Problem List Review Problem List Initiated/Reviewed/Updated: Yes - My Orders Last 24 Hours: Active Orders 24 hr Category Date Time Status Communication Order [RC] STAT Care 03/06/17 04:49 Active CBC W/O DIFF,HEMOGRAM [HEME] MOTH@0700 Lab 03/07/17 07:00 Ordered CBC W/O DIFF,HEMOGRAM [HEME] MOTH@0700 Lab 03/10/17 07:00 Ordered CBC W/O DIFF,HEMOGRAM [HEME] MOTH@0700 Lab 03/14/17 07:00 Ordered CBC W/O DIFF,HEMOGRAM [HEME] MOTH@0700 Lab 03/17/17 07:00 Ordered CBC W/O DIFF,HEMOGRAM [HEME] MOTH@07 Lab 03/21/17 07:00 Ordered CBC W/O DIFF,HEMOGRAM [HEME] MOTH@0700 Lab 03/24/17 07:00 Ordered Acetaminophen/HYDROcodone [[place] 325-5 MG] Med 03/06/17 11:48 Ordered 1 tab PO Q6H PRN Heparin Sodium Med 03/05/17 21:00 Active 5,000 units SUBCUT Q12H Lactated Ringers [Ringers, Lactated] 1,000 ml Med 03/05/17 18:30 Active IV ASDIRECTED Phenol [Chloraseptic] Med 03/05/17 16:28 Active 0 ml MUCMEM Q2H PRN NG [Nasogastric Orogastric Tube Removal] [OM.PC] Oth 03/06/17 11:48 Ordered Routine Medication Orders Heparin Sodium (Porcine) (Heparin Sodium) 5,000 units SUBCUT Q12H [facility] Last Admin: 03/06/17 08:31 Dose: 5,000 units Admin: 03/05/17 20:48 Dose: Not Given Hydromorphone HCl (Dilaudid) 1 mg IVPUSH Q2H PRN PRN Reason: Pain Last Admin: 03/06/17 08:32 Dose: 1 mg Admin: 03/06/17 01:40 Dose: 1 mg Admin: 03/05/17 20:48 Dose: 1 mg Admin: 03/05/17 17:30 Dose: 1 mg Admin: 03/05/17 14:46 Dose: 1 mg Admin: 03/05/17 04:56 Dose: 1 mg Admin: 03/04/17 19:37 Dose: 1 mg Admin: 03/04/17 15:51 Dose: 1 mg Admin: 03/04/17 14:11 Dose: 1 mg Lactated Ringer's (Ringers, Lactated) 1,000 mls @ 75 mls/hr IV ASDIRECTED GLO Last Admin: 03/06/17 01:40 Dose: 75 mls/hr Ondansetron HCl (Zofran) 4 mg IVPUSH Q8H PRN PRN Reason: Nausea Phenol/Menthol (Chloraseptic) 0 ml MUCMEM Q2H PRN PRN Reason: Sore Throat Last Admin: 03/05/17 16:41 Dose: 1 spray - Plan Plan (Free Text/Narrative):: improving plan DC NG tube lab reviewed NEFTALI
[2017-03-06] MEDS: Acetaminophen/HYDROcodone 325-5 MG Tab PO PRN ×2 (12:35→18:44)
[2017-03-07] MEDS: Acetaminophen/HYDROcodone 325-5 MG Tab PO PRN ×2 (03:11→12:15)
[2017-03-07] MEDS: Lactated Ringers 1,000 ML IV SCH (03:12)
--- NOTE | 2017-03-07 06:50 | OR ---
DATE OF OPERATION: 03/04/2017 SURGEON: Agustin Jasso MD PREOPERATIVE DIAGNOSIS: Small bowel obstruction. POSTOPERATIVE DIAGNOSIS: Small bowel obstruction. OPERATION PERFORMED: Laparoscopy, laparotomy, derotation and twist in the small bowel and mid jejunum. ANESTHESIA: Procedure done under general anesthetic. ESTIMATED BLOOD LOSS: 100 mL. DESCRIPTION OF PROCEDURE: The patient was taken to the operating room, placed in supine position, connected to monitoring equipment, and given a general anesthetic and intubated. Antibiotics were given. SCDs were placed, and the abdomen was prepped with DuraPrep and draped off in a sterile fashion. Incision was made just below the umbilicus using a 5-mm Optiport, 0 degree camera. The abdominal cavity was entered. Pneumoperitoneum was established. A 5-mm trocar was then placed in the right upper quadrant and one in the left upper quadrant. The patient was placed in Trendelenburg and the omentum was placed up over the liver, was placed in left side up and small bowel was then traced showing a rotation. Attempts to derotate it were unsuccessful and was elected to do it manually. Camera and ports were removed along with the CO2 and each port was closed with subdermal 4- 0 Dexon suture. A midline incision was made from just above the umbilicus to just below the umbilicus, carried down by sharp dissection through the fascia. The muscle was quite big and this was encroached over the linea alba and some blood loss was noted there. Small bowel was then identified and traced on this from the cecum all the way to the area of the rotation. This was derotated and the mesentery checked. There is no thickening of lymph nodes. There was no fat wrapping and no ulceration noted. The bowel was tense. Lacteals were surprisingly full and there was some duskiness of the bowel which cleared. This completed the intraabdominal portion of the procedure. The omentum was brought down over the area and the fascia was closed in 2 layers with a running #1 PDS. Subcuticular tissue was irrigated. Dermis brought together with interrupted 3-0 Vicryl suture and arthur used to approximate the skin. The patient tolerated the procedure and sent to recovery room in a stable condition. MMODAL /[id number]
[2017-03-07] MEDS ORDERED: Sodium Chloride 0.9% 10 ML Syringe FLUSH PRN (08:17)
--- NOTE | 2017-03-07 08:17 | PCM.SURGPN ---
- General Info Date of Service: 03/07/17 POD#: 3 Functional Status: Reports: Pain Controlled - Review of Systems General: Reports: No Symptoms Pulmonary: Reports: No Symptoms Cardiovascular: Reports: No Symptoms Gastrointestinal: Reports: No Symptoms - Patient Data Vitals - most recent: Last Vital Signs Temp 98.1 F 03/07/17 03:18 Pulse 98 03/07/17 03:18 Resp 16 03/07/17 03:18 BP 145/92 H 03/07/17 03:18 Pulse Ox 98 03/07/17 03:18 Weight - most recent: 99.592 kg I&O - last 24 hours: Intake & Output 03/06/17 03/07/17 03/07/17 23:59 07:59 15:59 Intake Total 1064 Output Total 2500 Balance -1436 Lab Results last 24 hrs: Laboratory Results - last 24 hr 03/07/17 Range/Units 05:34 WBC 8.88 (4.23-9.07) K/mm3 RBC 5.39 (4.63-6.08) M/mm3 Hgb 15.1 (13.7-17.5) gm/L Hct 44.8 (40.1-51.0) % MCV 83.1 (79.0-92.2) fl MCH 28.0 (25.7-32.2) pg MCHC 33.7 (32.2-35.5) g/dl RDW Std Deviation 46.6 H (35.1-43.9) fL Plt Count 152 L (163-337) K/mm3 MPV 11.6 (9.4-12.3) fl Med Orders - Current: Current Medications Hydrocodone Bitart/Acetaminophen ([place] 325-5 Mg) 1 tab PO Q6H PRN PRN Reason: Pain Last Admin: 03/07/17 03:11 Dose: 1 tab Heparin Sodium (Porcine) (Heparin Sodium) 5,000 units SUBCUT Q12H GLO Last Admin: 03/06/17 20:38 Dose: Not Given Hydromorphone HCl (Dilaudid) 1 mg IVPUSH Q2H PRN PRN Reason: Pain Last Admin: 03/06/17 08:32 Dose: 1 mg Lactated Ringer's (Ringers, Lactated) 1,000 mls @ 75 mls/hr IV ASDIRECTED GLO Last Admin: 03/07/17 03:12 Dose: 75 mls/hr Ondansetron HCl (Zofran) 4 mg IVPUSH Q8H PRN PRN Reason: Nausea Phenol/Menthol (Chloraseptic) 0 ml MUCMEM Q2H PRN PRN Reason: Sore Throat Last Admin: 03/05/17 16:41 Dose: 1 spray Discontinued Medications Bupivacaine HCl (Marcaine 0.25%) Confirm Administered Dose 30 ml .ROUTE .STK- MED ONE Stop: 03/04/17 09:34 Last Admin: 03/04/17 10:23 Dose: 8 ml Bupivacaine HCl (Marcaine 0.5%) Confirm Administered Dose 30 ml .ROUTE .STK-MED ONE Stop: 03/04/17 11:50 Dexamethasone (Dexamethasone) Confirm Administered Dose 20 mg .ROUTE .STK-MED ONE Stop: 03/04/17 11:04 Diatrizoate Meglum/Diatrizoate Sod (Gastrografin 37%) 90 ml PO ONETIME ONE Stop: 03/04/17 07:05 Last Admin: 03/04/17 07:48 Dose: 90 ml Fentanyl (Sublimaze) Confirm Administered Dose 250 mcg .ROUTE .STK-MED ONE Stop: 03/04/17 09:48 Fentanyl (Sublimaze) 50 mcg IVPUSH Q5M PRN PRN Reason: Pain Stop: 03/04/17 18:00 Last Admin: 03/04/17 12:43 Dose: 50 mcg Fentanyl (Sublimaze) Confirm Administered Dose 100 mcg .ROUTE .STK-MED ONE Stop: 03/04/17 11:39 Glycopyrrolate () Confirm Administered Dose 1 mg .ROUTE .STK-MED ONE Stop: 03/04/17 11:29 Heparin Sodium (Porcine) (Heparin Sodium) 5,000 units SUBCUT Q12HR [facility] Hydromorphone HCl (Dilaudid) 1 mg IVPUSH ONETIME ONE Stop: 03/04/17 06:08 Last Admin: 03/04/17 06:18 Dose: 1 mg Hydromorphone HCl (Dilaudid) 0.5 mg IVPUSH Q15M PRN PRN Reason: severe pain Stop: 03/04/17 11:46 Last Admin: 03/04/17 12:29 Dose: 0.5 mg Hydromorphone HCl (Dilaudid) Confirm Administered Dose 1 mg .ROUTE .[facility] ONE Stop: 03/04/17 10:54 Sodium Chloride (Normal Saline) 1,000 mls @ 150 mls/hr IV ASDIRECTED [facility] Last Admin: 03/04/17 06:16 Dose: 150 mls/hr Sodium Chloride (Normal Saline) 1,000 mls @ 1,000 mls/hr IV ONETIME ONE Stop: 03/04/17 08:27 Last Admin: 03/04/17 14:17 Dose: Not Given Lidocaine HCl (Xylocaine-Mpf 1%) Confirm Administered Dose 4 mls @ as directed .ROUTE .[facility] ONE Stop: 03/04/17 09:47 Lactated Ringer's (Ringers, Lactated) Confirm Administered Dose 1,000 mls @ as directed .ROUTE .[facility] ONE Stop: 03/04/17 09:41 Last Admin: 03/04/17 14:17 Dose: Not Given Cefoxitin Sodium 2 gm/ Premix 50 mls @ 100 mls/hr IV ONETIME ONE Stop: 03/04/17 10:49 Last Admin: 03/04/17 14:17 Dose: Not Given Lactated Ringer's (Ringers, Lactated) Confirm Administered Dose 1,000 mls @ as directed .ROUTE .[facility] ONE Stop: 03/04/17 10:54 Lactated Ringer's (Ringers, Lactated) Confirm Administered Dose 1,000 mls @ as directed .ROUTE .[facility] ONE Stop: 03/04/17 11:52 Lactated Ringer's (Ringers, Lactated) 1,000 mls @ [facility] Last Admin: 03/05/17 04:56 Dose: 150 mls/hr Cefoxitin Sodium (Mefoxin In Dextrose,Iso-Osm 2 Gm/50 Ml) Confirm Administered Dose 50 mls @ as directed .ROUTE .[facility] ONE Stop: 03/04/17 12:24 Sodium Chloride (Normal Saline) 1,000 mls @ 999 mls/hr IV ASDIRECTED [facility] Stop: 03/04/17 22:01 Last Admin: 03/04/17 21:40 Dose: 500 mls/hr Lactated Ringer's (Ringers, Lactated) 1,000 mls @ 125 mls/hr IV ASDIRECTED [facility] Last Admin: 03/05/17 14:52 Dose: 125 mls/hr Iopamidol (Isovue-370 (76%)) 100 ml IVPUSH ONETIME ONE Stop: 03/04/17 07:05 Last Admin: 03/04/17 07:48 Dose: 100 ml Ketorolac Tromethamine (Toradol) Confirm Administered Dose 30 mg .ROUTE .STK- MED ONE Stop: 03/04/17 11:56 Ketorolac Tromethamine (Toradol) 30 mg IVPUSH Q8H [facility] Stop: 03/05/17 09:31 Last Admin: 03/05/17 09:42 Dose: 30 mg Meperidine HCl (Demerol) 12.5 mg IVPUSH ONETIME PRN PRN Reason: shivering Stop: 03/05/17 10:30 Metoclopramide HCl (Reglan) 10 mg IVPUSH ONETIME ONE Stop: 03/06/17 04:49 Last Admin: 03/06/17 05:15 Dose: 10 mg Midazolam HCl (Versed 1 Mg/Ml) Confirm Administered Dose 2 mg .ROUTE .STK-MED ONE Stop: 03/04/17 09:47 Neostigmine Methylsulfate (Neostigmine) Confirm Administered Dose 5 mg .ROUTE .STK-MED ONE Stop: 03/04/17 11:29 Ondansetron HCl (Zofran) 4 mg IVPUSH ONETIME ONE Stop: 03/04/17 06:08 Last Admin: 03/04/17 06:17 Dose: 4 mg Ondansetron HCl (Zofran) Confirm Administered Dose 4 mg .ROUTE .STK-MED ONE Stop: 03/04/17 09:47 Ondansetron HCl (Zofran) 4 mg IVPUSH ONETIME PRN PRN Reason: Nausea/Vomiting Stop: 03/04/17 18:00 Pantoprazole Sodium (Protonix Iv) 40 mg IVPUSH ONETIME ONE Stop: 03/06/17 04:50 Last Admin: 03/06/17 05:15 Dose: 40 mg Propofol (Diprivan 20 Ml) Confirm Administered Dose 200 mg .ROUTE .STK-MED ONE Stop: 03/04/17 09:47 Rocuronium [place] (Zemuron) Confirm Administered Dose 50 mg .ROUTE .STK-MED ONE Stop: 03/04/17 09:47 Rocuronium [place] (Zemuron) Confirm Administered Dose 50 mg .ROUTE .STK-MED ONE Stop: 03/04/17 11:19 - Exam General: alert, oriented Lungs: Clear to Auscultation, Normal Respiratory Effort Cardiovascular: Regular Rate, Regular Rhythm GI/Abdominal Exam: Normal Bowel Sounds, Soft, Non-Tender, No Organomegaly, No Distention, No Abnormal Bruit, No Mass, Pelvis Stable - Problem List Review Problem List Initiated/Reviewed/Updated: Yes - My Orders Last 24 Hours: Active Orders 24 hr Category Date Time Status CBC W/O DIFF,HEMOGRAM [HEME] MOTH@0700 Lab 03/10/17 07:00 Ordered CBC W/O DIFF,HEMOGRAM [HEME] MOTH@0700 Lab 03/14/17 07:00 Ordered CBC W/O DIFF,HEMOGRAM [HEME] MOTH@0700 Lab 03/17/17 07:00 Ordered CBC W/O DIFF,HEMOGRAM [HEME] MOTH@0700 Lab 03/21/17 07:00 Ordered CBC W/O DIFF,HEMOGRAM [HEME] MOTH@0700 Lab 03/24/17 07:00 Ordered Acetaminophen/HYDROcodone [[place] 325-5 MG] Med 03/06/17 11:48 Active 1 tab PO Q6H PRN NG [Nasogastric Orogastric Tube Removal] [OM.PC] Oth 03/06/17 11:48 Ordered Routine Medication Orders Hydrocodone Bitart/Acetaminophen ([place] 325-5 Mg) 1 tab PO Q6H PRN PRN Reason: Pain Last Admin: 03/07/17 03:11 Dose: 1 tab Admin: 03/06/17 18:44 Dose: 1 tab Admin: 03/06/17 12:35 Dose: 1 tab Heparin Sodium (Porcine) (Heparin Sodium) 5,000 units SUBCUT Q12H GLO Last Admin: 03/06/17 20:38 Dose: Not Given Admin: 03/06/17 08:31 Dose: 5,000 units Admin: 03/05/17 20:48 Dose: Not Given Hydromorphone HCl (Dilaudid) 1 mg IVPUSH Q2H PRN PRN Reason: Pain Last Admin: 03/06/17 08:32 Dose: 1 mg Admin: 03/06/17 01:40 Dose: 1 mg Admin: 03/05/17 20:48 Dose: 1 mg Admin: 03/05/17 17:30 Dose: 1 mg Admin: 03/05/17 14:46 Dose: 1 mg Admin: 03/05/17 04:56 Dose: 1 mg Admin: 03/04/17 19:37 Dose: 1 mg Admin: 03/04/17 15:51 Dose: 1 mg Admin: 03/04/17 14:11 Dose: 1 mg Lactated Ringer's (Ringers, Lactated) 1,000 mls @ 75 mls/hr IV ASDIRECTED GLO Last Admin: 03/07/17 03:12 Dose: 75 mls/hr Infusion: 03/07/17 03:12 Dose: 75 mls/hr Admin: 03/06/17 14:28 Dose: 75 mls/hr Infusion: 03/06/17 14:28 Dose: 75 mls/hr Admin: 03/06/17 01:40 Dose: 75 mls/hr Ondansetron HCl (Zofran) 4 mg IVPUSH Q8H PRN PRN Reason: Nausea Phenol/Menthol (Chloraseptic) 0 ml MUCMEM Q2H PRN PRN Reason: Sore Throat Last Admin: 03/05/17 16:41 Dose: 1 spray - Plan Plan (Free Text/Narrative):: doing well plan saline lock IV start diet NEFTALI
[2017-03-07] MEDS ORDERED: Diphtheria,Pertussis(Acell),Tetanus Vaccine 0.5 ML SDV IM ONE (08:36)
[2017-03-07] MEDS: Heparin Sodium 5,000 Units/ML Vial SUBCUT SCH ×2 (09:10→21:05)
[2017-03-08] MEDS: Acetaminophen/HYDROcodone 325-5 MG Tab PO PRN (00:12)
[2017-03-08 08:38] VITALS: BP 147/81
[2017-03-08] MEDS: Heparin Sodium 5,000 Units/ML Vial SUBCUT SCH (10:31)
--- NOTE | 2017-03-08 12:07 | PCM.SURGPN ---
- General Info Date of Service: 03/08/17 - Patient Data Vitals - Most Recent: Last Vital Signs Temp 98.1 F 03/08/17 07:48 Pulse 100 03/08/17 07:48 Resp 16 03/08/17 07:48 BP 147/81 H 03/08/17 07:48 Pulse Ox 99 03/08/17 07:48 Weight - Most Recent: 97.795 kg I&O - Last 24 Hours: Intake & Output 03/07/17 03/08/17 03/08/17 23:59 07:59 15:59 Intake Total 1423 400 680 Balance 1423 400 680 Med Orders - Current: Current Medications Hydrocodone Bitart/Acetaminophen ([place] 325-5 Mg) 1 tab PO Q6H PRN PRN Reason: Pain Last Admin: 03/08/17 00:12 Dose: 1 tab Heparin Sodium (Porcine) (Heparin Sodium) 5,000 units SUBCUT Q12H GLO Last Admin: 03/08/17 10:31 Dose: Not Given Ondansetron HCl (Zofran) 4 mg IVPUSH Q8H PRN PRN Reason: Nausea Phenol/Menthol (Chloraseptic) 0 ml MUCMEM Q2H PRN PRN Reason: Sore Throat Last Admin: 03/05/17 16:41 Dose: 1 spray Sodium Chloride (Saline Flush) 10 ml FLUSH ASDIRECTED PRN PRN Reason: Keep Vein Open Discontinued Medications Bupivacaine HCl (Marcaine 0.25%) Confirm Administered Dose 30 ml .ROUTE .STK- MED ONE Stop: 03/04/17 09:34 Last Admin: 03/04/17 10:23 Dose: 8 ml Bupivacaine HCl (Marcaine 0.5%) Confirm Administered Dose 30 ml .ROUTE .STK-MED ONE Stop: 03/04/17 11:50 Dexamethasone (Dexamethasone) Confirm Administered Dose 20 mg .ROUTE .STK-MED ONE Stop: 03/04/17 11:04 Diatrizoate Meglum/Diatrizoate Sod (Gastrografin 37%) 90 ml PO ONETIME ONE Stop: 03/04/17 07:05 Last Admin: 03/04/17 07:48 Dose: 90 ml Diphtheria/Tetanus/Acell Pertussis (Adacel) 0.5 ml IM .ONCE ONE Stop: 03/07/17 08:37 Fentanyl (Sublimaze) Confirm Administered Dose 250 mcg .ROUTE .STK-MED ONE Stop: 03/04/17 09:48 Fentanyl (Sublimaze) 50 mcg IVPUSH Q5M PRN PRN Reason: Pain Stop: 03/04/17 18:00 Last Admin: 03/04/17 12:43 Dose: 50 mcg Fentanyl (Sublimaze) Confirm Administered Dose 100 mcg .ROUTE .STK-MED ONE Stop: 03/04/17 11:39 Glycopyrrolate () Confirm Administered Dose 1 mg .ROUTE .STK-MED ONE Stop: 03/04/17 11:29 Heparin Sodium (Porcine) (Heparin Sodium) 5,000 units SUBCUT Q12HR [facility] Hydromorphone HCl (Dilaudid) 1 mg IVPUSH ONETIME ONE Stop: 03/04/17 06:08 Last Admin: 03/04/17 06:18 Dose: 1 mg Hydromorphone HCl (Dilaudid) 0.5 mg IVPUSH Q15M PRN PRN Reason: severe pain Stop: 03/04/17 11:46 Last Admin: 03/04/17 12:29 Dose: 0.5 mg Hydromorphone HCl (Dilaudid) Confirm Administered Dose 1 mg .ROUTE .STK-MED ONE Stop: 03/04/17 10:54 Hydromorphone HCl (Dilaudid) 1 mg IVPUSH Q2H PRN PRN Reason: Pain Last Admin: 03/06/17 08:32 Dose: 1 mg Sodium Chloride (Normal Saline) 1,000 mls @ 150 mls/hr IV ASDIRECTED [facility] Last Admin: 03/04/17 06:16 Dose: 150 mls/hr Sodium Chloride (Normal Saline) 1,000 mls @ 1,000 mls/hr IV ONETIME ONE Stop: 03/04/17 08:27 Last Admin: 03/04/17 14:17 Dose: Not Given Lidocaine HCl (Xylocaine-Mpf 1%) Confirm Administered Dose 4 mls @ as directed .ROUTE .STK-MED ONE Stop: 03/04/17 09:47 Lactated Ringer's (Ringers, Lactated) Confirm Administered Dose 1,000 mls @ as directed .ROUTE .STK-MED ONE Stop: 03/04/17 09:41 Last Admin: 03/04/17 14:17 Dose: Not Given Cefoxitin Sodium 2 gm/ Premix 50 mls @ 100 mls/hr IV ONETIME ONE Stop: 03/04/17 10:49 Last Admin: 03/04/17 14:17 Dose: Not Given Lactated Ringer's (Ringers, Lactated) Confirm Administered Dose 1,000 mls @ as directed .ROUTE .[facility] ONE Stop: 03/04/17 10:54 Lactated Ringer's (Ringers, Lactated) Confirm Administered Dose 1,000 mls @ as directed .ROUTE .[facility] ONE Stop: 03/04/17 11:52 Lactated Ringer's (Ringers, Lactated) 1,000 mls @ 150 mls/hr IV ASDIRECTED [facility] Last Admin: 03/05/17 04:56 Dose: 150 mls/hr Cefoxitin Sodium (Mefoxin In Dextrose,Iso-Osm 2 Gm/50 Ml) Confirm Administered Dose 50 mls @ as directed .ROUTE .[facility] ONE Stop: 03/04/17 12:24 Sodium Chloride (Normal Saline) 1,000 mls @ 999 mls/hr IV ASDIRECTED [facility] Stop: 03/04/17 22:01 Last Admin: 03/04/17 21:40 Dose: 500 mls/hr Lactated Ringer's (Ringers, Lactated) 1,000 mls @ 125 mls/hr IV ASDIRECTED [facility] Last Admin: 03/05/17 14:52 Dose: 125 mls/hr Lactated Ringer's (Ringers, Lactated) 1,000 mls @ 75 mls/hr IV ASDIRECTED [facility] Last Admin: 03/07/17 03:12 Dose: 75 mls/hr Iopamidol (Isovue-370 (76%)) 100 ml IVPUSH ONETIME ONE Stop: 03/04/17 07:05 Last Admin: 03/04/17 07:48 Dose: 100 ml Ketorolac Tromethamine (Toradol) Confirm Administered Dose 30 mg .ROUTE .[facility] ONE Stop: 03/04/17 11:56 Ketorolac Tromethamine (Toradol) 30 mg IVPUSH Q8H [facility] Stop: 03/05/17 09:31 Last Admin: 03/05/17 09:42 Dose: 30 mg Meperidine HCl (Demerol) 12.5 mg IVPUSH ONETIME PRN PRN Reason: shivering Stop: 03/05/17 10:30 Metoclopramide HCl (Reglan) 10 mg IVPUSH ONETIME ONE Stop: 03/06/17 04:49 Last Admin: 03/06/17 05:15 Dose: 10 mg Midazolam HCl (Versed 1 Mg/Ml) Confirm Administered Dose 2 mg .ROUTE .STK-MED ONE Stop: 03/04/17 09:47 Neostigmine Methylsulfate (Neostigmine) Confirm Administered Dose 5 mg .ROUTE .STK-MED ONE Stop: 03/04/17 11:29 Ondansetron HCl (Zofran) 4 mg IVPUSH ONETIME ONE Stop: 03/04/17 06:08 Last Admin: 03/04/17 06:17 Dose: 4 mg Ondansetron HCl (Zofran) Confirm Administered Dose 4 mg .ROUTE .STK-MED ONE Stop: 03/04/17 09:47 Ondansetron HCl (Zofran) 4 mg IVPUSH ONETIME PRN PRN Reason: Nausea/Vomiting Stop: 03/04/17 18:00 Pantoprazole Sodium (Protonix Iv) 40 mg IVPUSH ONETIME ONE Stop: 03/06/17 04:50 Last Admin: 03/06/17 05:15 Dose: 40 mg Propofol (Diprivan 20 Ml) Confirm Administered Dose 200 mg .ROUTE .STK-MED ONE Stop: 03/04/17 09:47 Rocuronium [place] (Zemuron) Confirm Administered Dose 50 mg .ROUTE .STK-MED ONE Stop: 03/04/17 09:47 Rocuronium [place] (Zemuron) Confirm Administered Dose 50 mg .ROUTE .STK-MED ONE Stop: 03/04/17 11:19 - Problem List Review Problem List Initiated/Reviewed/Updated: Yes - My Orders Last 24 Hours: Active Orders 24 hr Category Date Time Status Ready for Discharge [RC] PER UNIT ROUTINE Care 03/08/17 12:04 Active Full Liquid Diet [DIET] Diet 03/08/17 Lunch Active CBC W/O DIFF,HEMOGRAM [HEME] MOTH@0700 Lab 03/10/17 07:00 Ordered CBC W/O DIFF,HEMOGRAM [HEME] MOTH@0700 Lab 03/14/17 07:00 Ordered CBC W/O DIFF,HEMOGRAM [HEME] MOTH@0700 Lab 03/17/17 07:00 Ordered CBC W/O DIFF,HEMOGRAM [HEME] MOTH@699 Lab 03/21/17 07:00 Ordered CBC W/O DIFF,HEMOGRAM [HEME] MOTH@699 Lab 03/24/17 07:00 Ordered Medication Orders Hydrocodone Bitart/Acetaminophen ([place] 325-5 Mg) 1 tab PO Q6H PRN PRN Reason: Pain Last Admin: 03/08/17 00:12 Dose: 1 tab Admin: 03/07/17 12:15 Dose: 1 tab Admin: 03/07/17 03:11 Dose: 1 tab Admin: 03/06/17 18:44 Dose: 1 tab Admin: 03/06/17 12:35 Dose: 1 tab Heparin Sodium (Porcine) (Heparin Sodium) 5,000 units SUBCUT Q12H GLO Last Admin: 03/08/17 10:31 Dose: Not Given Admin: 03/07/17 21:05 Dose: Not Given Admin: 03/07/17 09:10 Dose: Not Given Admin: 03/06/17 20:38 Dose: Not Given Admin: 03/06/17 08:31 Dose: 5,000 units Admin: 03/05/17 20:48 Dose: Not Given Ondansetron HCl (Zofran) 4 mg IVPUSH Q8H PRN PRN Reason: Nausea Phenol/Menthol (Chloraseptic) 0 ml MUCMEM Q2H PRN PRN Reason: Sore Throat Last Admin: 03/05/17 16:41 Dose: 1 spray Sodium Chloride (Saline Flush) 10 ml FLUSH ASDIRECTED PRN PRN Reason: Keep Vein Open - Plan Plan (Free Text/Narrative):: discharge dictated NEFTALI
--- NOTE | 2017-03-09 02:12 | DISCH ---
ADMISSION DATE: 03/04/2017 DISCHARGE DATE: 03/08/2017 HISTORY: This is a 26-year-old who came into the emergency room early this morning with abdominal pain in the left upper quadrant. It began about 10 p.m. the day before it gradually increased in intensity. Associated with nausea and vomiting, abdominal distention, ability to have flatus, cramps. His pain was described as crampy. He was given Dilaudid in the emergency room. CT scan showed a small bowel obstruction, loop of jejunum that suggests an internal hernia. LABORATORY DATA: Showed a white count of 13,000. Electrolytes were unremarkable except for a mild elevation of the creatinine 1.4. PHYSICAL EXAMINATION: GENERAL: Examination was done in the emergency room showing alert, cooperative male. Moderate distress. VITAL SIGNS: Stable. EYES: Unremarkable. NECK: Supple. LUNGS: Clear. HEART: Showed sinus tachycardia. SKIN: Normal. ABDOMEN: Showed tenderness in the left upper quadrant. HOSPITAL COURSE: The patient was judged to have a bowel obstruction, a possible internal hernia with ischemia because of his tenderness and elevated white count. He is brought to the operating room, emergent procedure where laparoscopy showed a twisted bowel and a laparotomy was then performed, which was untwisted. The patient's postoperative course was that of continued improvement. White count came to normal. He was given IV fluids to replenish his mild dehydration and his creatinine reverted from 1.4 to 1.3. Urinalysis was unremarkable. The patient's bowel sounds returned and his diet was started on Tuesday. IV fluids were discontinued and he was advanced as tolerated. His wound healed per primum. He had reached maximum hospital benefit, was discharged on Vicodin 5/325 one p.o. q.i.d. p.r.n. pain. He was discharged with Colace 100 mg b.i.d. Follow up and see me in a week. No work for probably 4 to 6 weeks. No lifting, pushing, shoving, or pulling. His condition was improved. His diet was regular. DIAGNOSES: 1. Small bowel obstruction secondary twisted jejunum status post laparotomy. 2. Mild dehydration, elevated creatinine which corrected with fluids. FINAL DIAGNOSIS: DISCHARGE MEDICATIONS: DIET: ACTIVITY: FOLLOW-UP: CONDITION ON DISCHARGE: MMODAL /[id number]
== END 2017-03-08 13:28 | disposition home or self-care (01) | DRG 223 ==
LOC: JD.ED 05:30 → JD.SDS 09:28 → JD.MS 12:00
PROVIDERS: ADMIT Surgery; ATTEND Surgery
PROC: 0DSA0ZZ Reposition Jejunum, Open Approach (ICD-10-PCS; principal; 2017-03-04)
DX: K56.2 Volvulus (principal); E86.0 Dehydration
CPT/HCPCS: 00840; 36415; 71020; 71020-26; 74177; 74177-26; 80053; 81001; 83690; 85025; 85027; 96361; 96374; 96375; 99285; 99285-25; A9270-GY; C9113; J0694; J1100; J1170; J1644; J1885; J2250; J2405; J2704; J2710; J2765; J3010; J3490; J7040; J7120; Q9963; Q9967

== ENCOUNTER 2017-03-14 18:37 | Inpatient (IN) | payer BC ==
[2017-03-14] MEDS ORDERED: Ondansetron 4 MG/2 ML SDV IVPUSH ONE (19:13)
[2017-03-14] MEDS ORDERED: Sodium Chloride 0.9% 10 ML Syringe FLUSH PRN ×2 (19:13→20:54)
[2017-03-14] MEDS ORDERED: HYDROmorphone 1 MG/ML Syringe IVPUSH ONE ×2 (19:13→21:06)
[2017-03-14] MEDS ORDERED: Sodium Chloride 0.9% 1,000 ML IV SCH (19:15)
--- NOTE | 2017-03-14 19:21 | EDM.PDOC ---
ED HPI GENERAL MEDICAL PROBLEM - General Chief Complaint: Abdominal Pain Stated Complaint: SEVERE ABDOMINAL PAIN,SURGER ON TUESDAY Time Seen by Provider: 03/14/17 19:09 Source of Information: Reports: Patient History Limitations: Reports: No Limitations - History of Present Illness INITIAL COMMENTS - FREE TEXT/NARRATIVE: Patient is a 26-year-old male presents ED complaining of right lower quadrant abdominal pain. Patient states he underwent open abdominal surgery to relieve twisted bowel a week and a half ago by Dr. Jasso. Attempted laparoscopically to reduce but was unsuccessful thus had to proceed to open. Patient was discharged 5 days later and has been doing quite well. Pain has been minimal. Has not been utilizing any narcotic pain medications. He's been eating and drinking well up until last night. States after eating fish became nauseated experience severe pain to his abdomen and vomited multiple times. Symptoms subsided until 12:00 last night when he awoke again with similar symptoms. Throughout the course today the symptoms have progressively gotten worse. He has not eaten or drank today. He has vomited couple times today. Of note he has been multiple times sweaty with no documented fever. He presents to the ED with no fever. Patient has had multiple bowel movements but notes stool has been small in nature. Denies any chest pain, shortness of breath, pain with urination , or dizziness. Patient has no additional past medical history is currently taking no medications. Surgically as listed above. Right Abdomen Pain Score (Numeric/FACES): 10 - Related Data Allergies Allergy/AdvReac Type Severity Reaction Status Date / Time No Known Allergies Allergy Verified 03/14/17 18:45 Home Meds: Home Meds Docusate Sodium [Colace] 100 mg PO BID #50 capsule 03/08/17 [Rx] Hydrocodone/Acetaminophen [Lorcet 5-325 mg Tablet] 5 - 325 mg PO QID PRN #20 tablet 03/08/17 [Rx] Past Medical History - Past Health History Medical/Surgical History: Denies Medical/Surgical History Gastrointestinal History: Reports: Bowel Obstruction Other Gastrointestinal History: patient had a twisted bowel Psychiatric History: Reports: Anxiety - Past Surgical History HEENT Surgical History: Reports: CAL Social & Family History - Family History Family Medical History: Noncontributory - Tobacco Use Smoking Status *Q: Unknown Ever Smoked - Caffeine Use Caffeine Use: Reports: Coffee - Recreational Drug Use Recreational Drug Use: No Drug Use in Last 12 Months: No Recreational Drug Type: Reports: Marijuana/Hashish - Living Situation & Occupation Living situation: Reports: Single, Alone 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 ED EXAM, GI/ABD - Physical Exam Exam: See Below Exam Limited By: No Limitations General Appearance: Alert, WD/WN, Moderate Distress Ears: Hearing Grossly Normal Nose: Normal Inspection Throat/Mouth: Normal Inspection, Normal Oropharynx, Normal Voice, No Airway Compromise Head: Atraumatic, Normocephalic Neck: Normal Inspection, Supple Respiratory/Chest: No Respiratory Distress, Lungs Clear, Normal Breath Sounds, No Accessory Muscle Use, Chest Non-Tender Cardiovascular: Normal Peripheral Pulses, Regular Rate, Rhythm, No Murmur GI/Abdominal Exam: Soft, No Organomegaly, No Distention, Tender (Right lower quadrant McBurney's point), Abnormal Bowel Sounds (Hypoactive), Other (Midline abdominal incision in the early stages of healing. Sutures are removed. Incision is intact with no concerns for infection.) (Male) Exam: Circumcised, Cremasteric Reflex (Minimal), Scrotal Swelling ( Left), Scrotum Tenderness (L) (Left), Suprapubic Fullness, Testicular Tenderness (L) (Left). No: Hernia (Unable to check secondary to pain), Inguinal Lymphadenopathy, Scrotum Tenderness (R), Testicular Mass, Urethral Discharge Rectal (Males) Exam: Deferred Back Exam: Normal Inspection Extremities: Normal Inspection, Non-Tender, No Pedal Edema, Normal Capillary Refill Neurological: Alert, Oriented, CN II-XII Intact, Normal Cognition Psychiatric: Normal Affect, Normal Mood Skin Exam: Warm, Dry, Intact, Normal Color Course - Vital Signs Last Recorded V/S: Last Vital Signs Temp 97.3 F 03/15/17 19:50 Pulse 69 03/15/17 19:50 Resp 14 03/15/17 19:50 BP 135/98 H 03/15/17 19:50 Pulse Ox 96 03/15/17 19:50 - Orders/Labs/Meds Orders: Medication Orders Benzocaine/Menthol (Cepacol Sore Throat) 1 lozenge MUCMEM Q6H PRN PRN Reason: Sore Throat Last Admin: 03/15/17 21:30 Dose: 1 lozenge Hydromorphone HCl (Dilaudid) 0.5 mg IVPUSH Q1H PRN PRN Reason: Pain Last Admin: 03/14/17 23:59 Dose: 0.5 mg Lactated Ringer's (Ringers, Lactated) 1,000 mls @ 150 mls/hr IV ASDIRECTED GLO Last Admin: 03/15/17 20:43 Dose: 150 mls/hr Infusion: 03/15/17 20:31 Dose: 150 mls/hr Admin: 03/15/17 13:50 Dose: 150 mls/hr Infusion: 03/15/17 13:43 Dose: 150 mls/hr Admin: 03/15/17 07:02 Dose: 150 mls/hr Infusion: 03/15/17 06:40 Dose: 150 mls/hr Admin: 03/14/17 23:59 Dose: 150 mls/hr Ketorolac Tromethamine (Toradol) 30 mg IVPUSH Q6H PRN PRN Reason: Pain Stop: 03/20/17 02:37 Last Admin: 03/15/17 14:00 Dose: 30 mg Admin: 03/15/17 02:49 Dose: 30 mg Ondansetron HCl (Zofran) 4 mg IVPUSH Q4H PRN PRN Reason: Nausea Sodium Chloride (Saline Flush) 10 ml FLUSH ASDIRECTED PRN PRN Reason: Keep Vein Open Last Admin: 03/14/17 18:45 Dose: 10 ml Labs: Laboratory Tests 03/14/17 03/14/17 03/14/17 Range/Units 16:00 18:46 18:46 WBC 16.30 H (4.23-9.07) K/mm3 RBC 6.94 H (4.63-6.08) M/mm3 Hgb 19.0 H (13.7-17.5) gm/L Hct 55.6 H (40.1-51.0) % MCV 80.1 (79.0-92.2) fl MCH 27.4 (25.7-32.2) pg MCHC 34.2 (32.2-35.5) g/dl RDW Std Deviation 46.1 H (35.1-43.9) fL Plt Count 352 H (163-337) K/mm3 MPV 11.4 (9.4-12.3) fl Neut % (Auto) 79.6 H (34.0-67.9) % Lymph % (Auto) 12.8 L (21.8-53.1) % [place] % (Auto) 6.3 (5.3-12.2) % Eos % (Auto) 0.7 L (0.8-7.0) Baso % (Auto) 0.4 (0.1-1.2) % Neut # (Auto) 12.99 H (1.78-5.38) K/mm3 Lymph # (Auto) 2.08 (1.32-3.57) K/mm3 [place] # (Auto) 1.02 H (0.30-0.82) K/mm3 Eos # (Auto) 0.11 (0.04-0.54) K/mm3 Baso # (Auto) 0.06 (0.01-0.08) K/mm3 Manual Slide Review Abnormal smear Sodium 139 (136-145) mEq/L Potassium 4.2 (3.5-5.1) mEq/L Chloride 100 (98-107) mEq/L Carbon Dioxide 26 (21-32) mEq/L Anion Gap 17.2 H (5-15) BUN 13 (7-18) mg/dL Creatinine 1.6 H (0.7-1.3) mg/dL Est Cr Clr Drug Dosing TNP Estimated GFR (MDRD) 53 (>60) mL/min BUN/Creatinine Ratio 8.1 L (14-18) Glucose 125 H (74-106) mg/dL Calcium 10.7 H (8.5-10.1) mg/dL Total Bilirubin 0.8 (0.2-1.0) mg/dL AST 15 (15-37) U/L ALT 28 (16-63) U/L Alkaline Phosphatase 55 (46-116) U/L C-Reactive Protein 1.8 H* (<1.0) mg/dL Total Protein 8.9 H (6.4-8.2) g/dl Albumin 4.7 (3.4-5.0) g/dl Globulin 4.2 gm/dL Albumin/Globulin Ratio 1.1 (1-2) Lipase 265 (73-393) U/L Urine Color Yellow (Yellow) Urine Appearance Clear (Clear) Urine pH 7.0 (5.0-8.0) Ur Specific [place] 1.020 (1.005-1.030) Urine Protein 1+ H (Negative) Urine Glucose (UA) Negative (Negative) Urine Ketones Negative (Negative) Urine Occult Blood Negative (Negative) Urine Nitrite Negative (Negative) Urine Bilirubin Negative (Negative) Urine Urobilinogen 0.2 (0.2-1.0) Ur Leukocyte Esterase Negative (Negative) Urine RBC 0-5 (0-5) /hpf Urine WBC 0-5 (0-5) /hpf Ur Epithelial Cells Not seen (0-5) /hpf Urine Bacteria Not seen (FEW) /hpf Urine Mucus Few (FEW) /hpf Meds: Medications Generic Name Dose Route Start Last Admin Trade Name Freq PRN Reason Stop Dose Admin Benzocaine/Menthol 1 lozenge 03/15/17 20:46 03/15/17 21:30 Cepacol Sore Throat MUCMEM 1 lozenge Q6H PRN Administration Sore Throat Hydromorphone HCl 0.5 mg 03/14/17 23:18 03/14/17 23:59 Dilaudid IVPUSH 0.5 mg Q1H PRN Administration Pain Lactated Ringer's 1,000 mls @ 150 mls/hr 03/14/17 23:30 03/15/17 20:43 Ringers, Lactated IV 150 mls/hr ASDIRECTED GLO Administration Ketorolac Tromethamine 30 mg 03/15/17 02:38 03/15/17 14:00 Toradol IVPUSH 03/20/17 02:37 30 mg Q6H PRN Administration Pain Ondansetron HCl 4 mg 03/14/17 23:18 Zofran IVPUSH Q4H PRN Nausea Sodium Chloride 10 ml 03/14/17 19:13 03/14/17 18:45 Saline Flush FLUSH 10 ml ASDIRECTED PRN Administration Keep Vein Open Discontinued Medications Generic Name Dose Route Start Last Admin Trade Name Freq PRN Reason Stop Dose Admin Diatrizoate Meglum/Diatrizoate Sod 90 ml 03/14/17 20:54 03/14/17 21:27 Gastrografin 37% PO 03/14/17 20:55 90 ml ONETIME ONE Administration Hydromorphone HCl 1 mg 03/14/17 19:13 03/14/17 19:27 Dilaudid IVPUSH 03/14/17 19:14 1 mg ONETIME ONE Administration Hydromorphone HCl 1 mg 03/14/17 21:06 03/14/17 21:20 Dilaudid IVPUSH 03/14/17 21:07 1 mg ONETIME ONE Administration Sodium Chloride 1,000 mls @ 999 mls/hr 03/14/17 19:15 03/14/17 19:24 Normal Saline IV 999 mls/hr ASDIRECTED GLO Administration Sodium Chloride 1,000 mls @ 999 mls/hr 03/14/17 21:06 03/14/17 21:20 Normal Saline IV 03/14/17 22:06 999 mls/hr ONETIME ONE Administration Iopamidol 100 ml 03/14/17 20:54 03/14/17 21:27 Isovue-370 (76%) IVPUSH 03/14/17 20:55 100 ml ONETIME ONE Administration Ondansetron HCl 4 mg 03/14/17 19:13 03/14/17 19:25 Zofran IVPUSH 03/14/17 19:14 4 mg ONETIME ONE Administration Sodium Chloride 10 ml 03/14/17 20:54 03/14/17 21:28 Saline Flush FLUSH 10 ml ONETIME PRN Administration IV FLUSH - Re-Assessments/Exams Free Text/Narrative Re-Assessment/Exam: Order peripheral IV with normal saline 999 mls/hr and Zofran 4 mg IVP. Initial labs and studies include CBC, chem14, CRP, lipase, UA, and blood culture 2. Will also obtain CT the abdomen and pelvis with IV and oral contrast. 03/14/17 19:41 patient having come back in the room. States he has been experience and pain to his left testicle since this morning. He failed to mention this. States the pain is quite severe worse with palpation. He did masturbate this morning taking this would relieve it but only made it worse. States he does not want to touch his testicle secondary to pain. Pain is worse with ambulating as well. He has no history of testicular torsion. Labs reviewed:White blood cell count 16.30, hemoglobin is 19, platelet count 352 , neutrophil percent is 79.6, neutrophil number is 12.99, sodium 139, potassium 4.2, I and gap is 17.2, creatinine 1.6, CRP 1.8, lipase is 265. UA is pending. 03/14/17 21:07 Fluids are in. Pain is a 7 out of 10. Ordered additional bag of NS and Dilaudid 1 mg IVP. 03/14/17 21:09 ultrasound of the testicle impression: Slightly lobulated inferior left testicle which is felt to be incidental. Moderate left-sided hydrocele. Small epididymal cysts noted on the right side. No additional abnormalities seen on testicular ultrasound exam. Discussed patient with Dr. 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 Bridge orders along with MCG placed. Departure - Departure Time of Disposition: 23:34 Disposition: Admitted As Inpatient 67 Condition: Fair Clinical Impression: Ileus following gastrointestinal surgery, Partial obstruction of small intestine Nausea & vomiting Qualifiers: Vomiting type: unspecified Vomiting Intractability: non-intractable Qualified Code(s): R11.2 - Nausea with vomiting, unspecified Abdominal pain Qualifiers: Abdominal location: right lower quadrant Qualified Code(s): R10.31 - Right lower quadrant pain - Discharge Information
--- NOTE | 2017-03-14 20:53 | US ---
Testicular ultrasound: Multiple real-time images of the testicles were obtained. Comparison: No previous testicular imaging. Findings: Inferior left testicle has a slight lobulation which is felt to be normal variant. No focal intratesticular abnormality is seen on either the right or left side. Both arterial and venous blood flow are seen within both testicles. Left-sided hydrocele is seen. Small epididymal cyst is noted on the right side measuring 6 mm. Measurements: Right testicle: 6.2 x 2.8 x 6.2 cm Left testicle: 5.7 x 3.5 x 4.1 cm Impression: 1. Slightly lobulated inferior left testicle which is felt to be incidental. 2. Moderate left-sided hydrocele. 3. Small epididymal cyst noted on the right side. 4. No additional abnormality is seen on testicular ultrasound exam. Diagnostic code #2
[2017-03-14] MEDS ORDERED: Diatrizoate Meglumine/Diatrizoate Sodium 37% 120 ML Bottle PO ONE (20:54)
[2017-03-14] MEDS ORDERED: Iopamidol 755 Mg/ML 100 ML Bottle IVPUSH ONE (20:54)
[2017-03-14] MEDS ORDERED: Sodium Chloride 0.9% 1,000 ML IV ONE (21:06)
[2017-03-14] MEDS ORDERED: Ondansetron 4 MG/2 ML SDV IVPUSH PRN (23:18)
[2017-03-14] MEDS: Lactated Ringers 1,000 ML IV SCH (23:59)
[2017-03-14] MEDS: HYDROmorphone 0.5 MG/0.5 ML Syringe IVPUSH PRN (23:59)
[2017-03-15] MEDS: Ketorolac 30 MG/ML SDV IVPUSH PRN ×2 (02:49→14:00)
[2017-03-15] MEDS: Lactated Ringers 1,000 ML IV SCH ×3 (07:02→20:43)
--- NOTE | 2017-03-15 07:38 | CT ---
CT abdomen and pelvis Technique: Multiple axial sections were obtained from above the dome of the diaphragm inferiorly through the pubic symphysis. Intravenous contrast was utilized. Oral contrast has been given which remains within the stomach. Delayed images were obtained through the bladder. Comparison: Previous CT abdomen and pelvis exam of 03/04/17. Findings: Continuing dilated loops of small bowel are seen within the mid to lower abdomen. Increased free fluid is identified within the pelvis from prior exam. Visualized lung bases are clear. Liver shows no focal parenchymal abnormality. Spleen appears within normal limits. Adrenal glands show no nodule. Pancreas is within normal limits. No calcified gallstones are seen. Kidneys show symmetric contrast enhancement without hydronephrosis or mass. Aorta shows no aneurysmal dilatation. Appendix is seen which is normal. No pelvic mass or adenopathy is identified. Delayed images show contrast within the distal ureters and within the bladder. Bone window settings were reviewed which appear within normal limits. Impression: 1. Continuing dilated mid to distal small bowel suspicious for obstruction. Overall findings are fairly stable from previous exam. 2. Increasing free fluid within the pelvis presumably reactive from the small bowel process. Diagnostic code #5 Agree with preliminary report issued by [facility] ([facility] preliminary report dictated on 03/14/17, 11:02 PM Central Time
--- NOTE | 2017-03-15 08:40 | CR ---
Abdomen: Supine and upright views of the abdomen were obtained. Comparison: Previous CT exam of the abdomen and pelvis dated 03/14/17. Several loops of dilated air-filled small bowel are seen within the left upper abdomen. Soft tissue fullness is seen more inferiorly believed to represent additional small bowel dilatation containing fluid. Contrast is noted within the bladder from previous CT exam. Nasogastric tube now seen with tip lying within the distal stomach. No free air is identified. Bony structures are unremarkable. Impression: 1. Continuing dilated air-filled and fluid-filled small bowel within the midabdomen. This was noted on recent CT exam. 2. Nasogastric tube now seen with tip lying within the distal stomach. Diagnostic code #3
--- NOTE | 2017-03-15 12:49 | PCM.PN ---
- General Info Date of Service: 03/15/17 - Patient Data Vitals - Most Recent: Last Vital Signs Temp 98.2 F 03/15/17 11:26 Pulse 88 03/15/17 11:26 Resp 4 L 03/15/17 11:26 BP 137/83 03/15/17 11:26 Pulse Ox 98 03/15/17 11:26 Weight - Most Recent: 95.793 kg I&O - Last 24 Hours: Intake & Output 03/14/17 03/15/17 03/15/17 23:59 07:59 15:59 Intake Total 890 Output Total 870 Balance 20 Lab Results Last 24 Hours: Laboratory Results - last 24 hr 03/15/17 03/15/17 Range/Units 05:52 05:52 WBC 11.72 H (4.23-9.07) K/mm3 RBC 5.84 (4.63-6.08) M/mm3 Hgb 16.4 (13.7-17.5) gm/L Hct 48.5 (40.1-51.0) % MCV 83.0 (79.0-92.2) fl MCH 28.1 (25.7-32.2) pg MCHC 33.8 (32.2-35.5) g/dl RDW Std Deviation 47.8 H (35.1-43.9) fL Plt Count 269 (163-337) K/mm3 MPV 11.6 (9.4-12.3) fl Neut % (Auto) 76.2 H (34.0-67.9) % Lymph % (Auto) 12.6 L (21.8-53.1) % [place] % (Auto) 9.0 (5.3-12.2) % Eos % (Auto) 1.6 (0.8-7.0) Baso % (Auto) 0.3 (0.1-1.2) % Neut # (Auto) 8.93 H (1.78-5.38) K/mm3 Lymph # (Auto) 1.48 (1.32-3.57) K/mm3 [place] # (Auto) 1.05 H (0.30-0.82) K/mm3 Eos # (Auto) 0.19 (0.04-0.54) K/mm3 Baso # (Auto) 0.04 (0.01-0.08) K/mm3 Sodium 139 (136-145) mEq/L Potassium 4.6 (3.5-5.1) mEq/L Chloride 106 (98-107) mEq/L Carbon Dioxide 29 (21-32) mEq/L Anion Gap 8.6 (5-15) BUN 13 (7-18) mg/dL Creatinine 1.4 H (0.7-1.3) mg/dL Est Cr Clr Drug Dosing 78.04 mL/min Estimated GFR (MDRD) > 60 (>60) mL/min BUN/Creatinine Ratio 9.3 L (14-18) Glucose 112 H (74-106) mg/dL Calcium 9.4 (8.5-10.1) mg/dL Med Orders - Current: Current Medications Hydromorphone HCl (Dilaudid) 0.5 mg IVPUSH Q1H PRN PRN Reason: Pain Last Admin: 03/14/17 23:59 Dose: 0.5 mg Lactated Ringer's (Ringers, Lactated) 1,000 mls @ 150 mls/hr IV ASDIRECTED GLO Last Admin: 03/15/17 07:02 Dose: 150 mls/hr Ketorolac Tromethamine (Toradol) 30 mg IVPUSH Q6H PRN PRN Reason: Pain Stop: 03/20/17 02:37 Last Admin: 03/15/17 02:49 Dose: 30 mg Ondansetron HCl (Zofran) 4 mg IVPUSH Q4H PRN PRN Reason: Nausea Sodium Chloride (Saline Flush) 10 ml FLUSH ASDIRECTED PRN PRN Reason: Keep Vein Open Last Admin: 03/14/17 18:45 Dose: 10 ml Discontinued Medications Diatrizoate Meglum/Diatrizoate Sod (Gastrografin 37%) 90 ml PO ONETIME ONE Stop: 03/14/17 20:55 Last Admin: 03/14/17 21:27 Dose: 90 ml Hydromorphone HCl (Dilaudid) 1 mg IVPUSH ONETIME ONE Stop: 03/14/17 19:14 Last Admin: 03/14/17 19:27 Dose: 1 mg Hydromorphone HCl (Dilaudid) 1 mg IVPUSH ONETIME ONE Stop: 03/14/17 21:07 Last Admin: 03/14/17 21:20 Dose: 1 mg Sodium Chloride (Normal Saline) 1,000 mls @ 999 mls/hr IV ASDIRECTED [facility] Last Admin: 03/14/17 19:24 Dose: 999 mls/hr Sodium Chloride (Normal Saline) 1,000 mls @ 999 mls/hr IV ONETIME ONE Stop: 03/14/17 22:06 Last Admin: 03/14/17 21:20 Dose: 999 mls/hr Iopamidol (Isovue-370 (76%)) 100 ml IVPUSH ONETIME ONE Stop: 03/14/17 20:55 Last Admin: 03/14/17 21:27 Dose: 100 ml Ondansetron HCl (Zofran) 4 mg IVPUSH ONETIME ONE Stop: 03/14/17 19:14 Last Admin: 03/14/17 19:25 Dose: 4 mg Sodium Chloride (Saline Flush) 10 ml FLUSH ONETIME PRN PRN Reason: IV FLUSH Last Admin: 03/14/17 21:28 Dose: 10 ml - Problem List Review Problem List Initiated/Reviewed/Updated: Yes - My Orders Last 24 Hours: My Active Orders 03/14/17 23:18 Activity as Tolerated [RC] .Routine Vital Signs [RC] Q4HR HYDROmorphone [Dilaudid] 0.5 mg IVPUSH Q1H PRN Ondansetron [Zofran] 4 mg IVPUSH Q4H PRN Resuscitation Status Routine 03/14/17 23:27 NG [Gastrointestinal Tube Mgmt] [RC] 10,22 03/14/17 23:30 Lactated Ringers [Ringers, Lactated] 1,000 ml IV ASDIRECTED 03/15/17 02:38 Ketorolac [Toradol] 30 mg IVPUSH Q6H PRN 03/15/17 08:21 Antiembolic Devices [RC] PER UNIT ROUTINE NATALIE Hose [Antiembolic Hose] [OM.PC] Routine - Plan Plan:: h&P dictated SHERRIEB
--- NOTE | 2017-03-15 14:08 | HP ---
DATE OF ADMISSION: 03/14/2017 HISTORY OF PRESENT ILLNESS: This 26-year-old presented to the emergency room yesterday evening. The patient was discharged 5 days ago after undergoing a laparotomy for a small bowel obstruction, which had resolved with surgery. The patient had been doing well. This started the day before coming to the emergency room. Last night, at 12 o'clock, the patient became nauseated and had pain in the abdomen and vomited a number of times. The pain subsided and then at midnight he was awakened with similar symptoms, and was getting worse. He was unable to eat or drink. He came into the emergency room, where a CT scan was performed showing a small bowel obstruction. An NG tube was placed, and his cramps improved. X-rays demonstrated dilatation of small bowel loops. The patient has never smoked. PAST MEDICAL HISTORY: Past medical history has been that of good health. SOCIAL HISTORY: He has smoked marijuana in the past for recreational drugs. REVIEW OF SYSTEMS: No chest pain, shortness of breath, cough, hoarseness, wheezing, fainting, weakness, numbness, or convulsions. He does have some nausea and vomiting. CURRENT MEDICATIONS: None. FAMILY HISTORY: Negative. PHYSICAL EXAMINATION: VITAL SIGNS: Temperature 98, pulse rate 87, and blood pressure 137/83. EYES: Sclerae white. Extraocular muscle motion normal. ORAL CAVITY: Healthy mucous membrane. NECK: Supple. No nodes. No thyromegaly. LUNGS: Clear. No rales, rhonchi, fremitus, or dullness. HEART: Tones regular rate. No S3, S4, jugular venous distention. ABDOMEN: Soft. There are bowel sounds quiet. Surgical site healed. EXTREMITIES: Upper and lower extremities, no angulation deformities. NEUROLOGIC: No sensorineural deficit. Cranial nerves 3 through 12 intact. PSYCHIATRIC: The patient is anxious and irritated. SKIN: Warm and dry. ASSESSMENT: Small bowel obstruction, recurrent. PLAN: For IV fluids, NG suction. We talked to him about it. He discussed a need for transfer, and I recommended another 24 hours if not improved, we will seek a transfer to [place]. MMODAL /[id number]
[2017-03-15] MEDS ORDERED: Benzocaine/Cetylpyridinium/Menthol Lozenge MUCMEM PRN (20:46)
[2017-03-16] MEDS: Lactated Ringers 1,000 ML IV SCH ×3 (03:19→18:32)
[2017-03-16] MEDS: Ketorolac 30 MG/ML SDV IVPUSH PRN (04:02)
--- NOTE | 2017-03-16 08:22 | CR ---
Abdomen: Supine and upright views of the abdomen were obtained. Nasogastric tube is seen. Tip lies within the body of the stomach. Mildly dilated air-filled loops of small bowel are noted within the mid abdomen. Air is also noted within nondilated distal bowel and colon. No free air is seen. Bony structures are unremarkable. Atelectasis seen within the left lung base. Impression: 1. Mildly dilated air filled loops of small bowel within the mid abdomen. This correlates to the small bowel dilatation seen on CT exam performed on 03/14/17. 2. Nasogastric tube with tip lying within the body of the stomach. 3. Mild left basilar atelectasis. Diagnostic code #3
--- NOTE | 2017-03-16 13:10 | PCM.SURGPN ---
- General Info Date of Service: 03/16/17 POD#: 2 Functional Status: Reports: Pain Controlled - Review of Systems HEENT: Reports: No Symptoms Pulmonary: Reports: No Symptoms Cardiovascular: Reports: No Symptoms Gastrointestinal: Reports: No Symptoms, Other (having BM and flatus no abdominal cramps) - Patient Data Vitals - Most Recent: Last Vital Signs Temp 98.4 F 03/16/17 11:47 Pulse 76 03/16/17 11:47 Resp 12 03/16/17 11:47 BP 146/90 H 03/16/17 11:47 Pulse Ox 97 03/16/17 11:47 Weight - Most Recent: 96.207 kg I&O - Last 24 Hours: Intake & Output 03/15/17 03/16/17 03/16/17 23:59 07:59 15:59 Intake Total 2581 1440 Output Total 500 780 Balance 2081 660 Lab Results Last 24 Hrs: Laboratory Results - last 24 hr 03/16/17 03/16/17 Range/Units 06:15 06:15 WBC 8.34 (4.23-9.07) K/mm3 RBC 5.37 (4.63-6.08) M/mm3 Hgb 14.7 (13.7-17.5) gm/L Hct 45.0 (40.1-51.0) % MCV 83.8 (79.0-92.2) fl MCH 27.4 (25.7-32.2) pg MCHC 32.7 (32.2-35.5) g/dl RDW Std Deviation 45.8 H (35.1-43.9) fL Plt Count 211 (163-337) K/mm3 MPV 11.5 (9.4-12.3) fl Neut % (Auto) 73.3 H (34.0-67.9) % Lymph % (Auto) 17.1 L (21.8-53.1) % [place] % (Auto) 6.7 (5.3-12.2) % Eos % (Auto) 2.3 (0.8-7.0) Baso % (Auto) 0.5 (0.1-1.2) % Neut # (Auto) 6.11 H (1.78-5.38) K/mm3 Lymph # (Auto) 1.43 (1.32-3.57) K/mm3 [place] # (Auto) 0.56 (0.30-0.82) K/mm3 Eos # (Auto) 0.19 (0.04-0.54) K/mm3 Baso # (Auto) 0.04 (0.01-0.08) K/mm3 Sodium 143 (136-145) mEq/L Potassium 4.1 (3.5-5.1) mEq/L Chloride 105 (98-107) mEq/L Carbon Dioxide 29 (21-32) mEq/L Anion Gap 13.1 (5-15) BUN 12 (7-18) mg/dL Creatinine 1.3 (0.7-1.3) mg/dL Est Cr Clr Drug Dosing 84.04 mL/min Estimated GFR (MDRD) > 60 (>60) mL/min BUN/Creatinine Ratio 9.2 L (14-18) Glucose 88 (74-106) mg/dL Calcium 9.0 (8.5-10.1) mg/dL Total Bilirubin 0.7 (0.2-1.0) mg/dL AST 11 L (15-37) U/L ALT 16 (16-63) U/L Alkaline Phosphatase 44 L (46-116) U/L Total Protein 6.3 L (6.4-8.2) g/dl Albumin 3.3 L (3.4-5.0) g/dl Globulin 3.0 gm/dL Albumin/Globulin Ratio 1.1 (1-2) Med Orders - Current: Current Medications Benzocaine/Menthol (Cepacol Sore Throat) 1 lozenge MUCMEM Q6H PRN PRN Reason: Sore Throat Last Admin: 03/15/17 21:30 Dose: 1 lozenge Hydromorphone HCl (Dilaudid) 0.5 mg IVPUSH Q1H PRN PRN Reason: Pain Last Admin: 03/14/17 23:59 Dose: 0.5 mg Lactated Ringer's (Ringers, Lactated) 1,000 mls @ 150 mls/hr IV ASDIRECTED GLO Last Admin: 03/16/17 10:00 Dose: 150 mls/hr Ketorolac Tromethamine (Toradol) 30 mg IVPUSH Q6H PRN PRN Reason: Pain Stop: 03/20/17 02:37 Last Admin: 03/16/17 04:02 Dose: 30 mg Ondansetron HCl (Zofran) 4 mg IVPUSH Q4H PRN PRN Reason: Nausea Sodium Chloride (Saline Flush) 10 ml FLUSH ASDIRECTED PRN PRN Reason: Keep Vein Open Last Admin: 03/14/17 18:45 Dose: 10 ml Discontinued Medications Diatrizoate Meglum/Diatrizoate Sod (Gastrografin 37%) 90 ml PO ONETIME ONE Stop: 03/14/17 20:55 Last Admin: 03/14/17 21:27 Dose: 90 ml Hydromorphone HCl (Dilaudid) 1 mg IVPUSH ONETIME ONE Stop: 03/14/17 19:14 Last Admin: 03/14/17 19:27 Dose: 1 mg Hydromorphone HCl (Dilaudid) 1 mg IVPUSH ONETIME ONE Stop: 03/14/17 21:07 Last Admin: 03/14/17 21:20 Dose: 1 mg Sodium Chloride (Normal Saline) 1,000 mls @ 999 mls/hr IV ASDIRECTED GLO Last Admin: 03/14/17 19:24 Dose: 999 mls/hr Sodium Chloride (Normal Saline) 1,000 mls @ 999 mls/hr IV ONETIME ONE Stop: 03/14/17 22:06 Last Admin: 03/14/17 21:20 Dose: 999 mls/hr Iopamidol (Isovue-370 (76%)) 100 ml IVPUSH ONETIME ONE Stop: 03/14/17 20:55 Last Admin: 03/14/17 21:27 Dose: 100 ml Ondansetron HCl (Zofran) 4 mg IVPUSH ONETIME ONE Stop: 03/14/17 19:14 Last Admin: 03/14/17 19:25 Dose: 4 mg Sodium Chloride (Saline Flush) 10 ml FLUSH ONETIME PRN PRN Reason: IV FLUSH Last Admin: 03/14/17 21:28 Dose: 10 ml - Exam Wound/Incisions: Healing Well General: Alert, Oriented Lungs: Clear to Auscultation, Normal Respiratory Effort Cardiovascular: Regular Rate, Regular Rhythm GI/Abdominal Exam: Normal Bowel Sounds, Soft, Non-Tender, No Organomegaly, No Distention, No Abnormal Bruit, No Mass, Pelvis Stable, Other (pain from NGtube) - Problem List Review Problem List Initiated/Reviewed/Updated: Yes - My Orders Last 24 Hours: Active Orders 24 hr Category Date Time Status Benzocaine/Cetylpyrd/Menthol [Cepacol Sore Throat] Med 03/15/17 20:46 Active 1 lozenge MUCMEM Q6H PRN Lactated Ringers @ 100 MLS/HR(1000ml Bag) Med 03/16/17 13:15 Ordered Lactated Ringers [Ringers, Lactated] 1,000 ml IV ASDIRECTED NG [Nasogastric Orogastric Tube Removal] [OM.PC] Urgent Oth 03/16/17 13:07 Ordered Medication Orders Benzocaine/Menthol (Cepacol Sore Throat) 1 lozenge MUCMEM Q6H PRN PRN Reason: Sore Throat Last Admin: 03/15/17 21:30 Dose: 1 lozenge Hydromorphone HCl (Dilaudid) 0.5 mg IVPUSH Q1H PRN PRN Reason: Pain Last Admin: 03/14/17 23:59 Dose: 0.5 mg Lactated Ringer's (Ringers, Lactated) 1,000 mls @ 150 mls/hr IV ASDIRECTED GLO Last Admin: 03/16/17 10:00 Dose: 150 mls/hr Infusion: 03/16/17 10:00 Dose: 150 mls/hr Admin: 03/16/17 03:19 Dose: 150 mls/hr Infusion: 03/16/17 03:19 Dose: 150 mls/hr Admin: 03/15/17 20:43 Dose: 150 mls/hr Infusion: 03/15/17 20:31 Dose: 150 mls/hr Admin: 03/15/17 13:50 Dose: 150 mls/hr Infusion: 03/15/17 13:43 Dose: 150 mls/hr Admin: 03/15/17 07:02 Dose: 150 mls/hr Infusion: 03/15/17 06:40 Dose: 150 mls/hr Admin: 03/14/17 23:59 Dose: 150 mls/hr Ketorolac Tromethamine (Toradol) 30 mg IVPUSH Q6H PRN PRN Reason: Pain Stop: 03/20/17 02:37 Last Admin: 03/16/17 04:02 Dose: 30 mg Admin: 03/15/17 14:00 Dose: 30 mg Admin: 03/15/17 02:49 Dose: 30 mg Ondansetron HCl (Zofran) 4 mg IVPUSH Q4H PRN PRN Reason: Nausea Sodium Chloride (Saline Flush) 10 ml FLUSH ASDIRECTED PRN PRN Reason: Keep Vein Open Last Admin: 03/14/17 18:45 Dose: 10 ml - Plan Plan (Free Text/Narrative):: reviewed lab and xraytoday ass ;improved because of pt complaints about the NG will remove and continue NPO NEFTALI
[2017-03-17] MEDS: Ketorolac 30 MG/ML SDV IVPUSH PRN ×2 (01:50→08:34)
[2017-03-17] MEDS: Lactated Ringers 1,000 ML IV SCH (04:38)
[2017-03-17 08:29] VITALS: BP 139/69
--- NOTE | 2017-03-17 10:57 | PCM.PN ---
- General Info Date of Service: 03/17/17 - Patient Data Vitals - Most Recent: Last Vital Signs Temp 98.4 F 03/17/17 07:48 Pulse 60 03/17/17 07:48 Resp 14 03/17/17 07:48 BP 139/69 03/17/17 07:48 Pulse Ox 97 03/17/17 07:48 Weight - Most Recent: 94.937 kg I&O - Last 24 Hours: Intake & Output 03/16/17 03/17/17 03/17/17 23:59 07:59 15:59 Intake Total 1971 1200 Balance 1971 1200 Med Orders - Current: Current Medications Benzocaine/Menthol (Cepacol Sore Throat) 1 lozenge MUCMEM Q6H PRN PRN Reason: Sore Throat Last Admin: 03/15/17 21:30 Dose: 1 lozenge Hydromorphone HCl (Dilaudid) 0.5 mg IVPUSH Q1H PRN PRN Reason: Pain Last Admin: 03/14/17 23:59 Dose: 0.5 mg Lactated Ringer's (Ringers, Lactated) 1,000 mls @ 100 mls/hr IV ASDIRECTED GLO Last Admin: 03/17/17 04:38 Dose: 100 mls/hr Ketorolac Tromethamine (Toradol) 30 mg IVPUSH Q6H PRN PRN Reason: Pain Stop: 03/20/17 02:37 Last Admin: 03/17/17 08:34 Dose: 30 mg Ondansetron HCl (Zofran) 4 mg IVPUSH Q4H PRN PRN Reason: Nausea Sodium Chloride (Saline Flush) 10 ml FLUSH ASDIRECTED PRN PRN Reason: Keep Vein Open Last Admin: 03/14/17 18:45 Dose: 10 ml Discontinued Medications Diatrizoate Meglum/Diatrizoate Sod (Gastrografin 37%) 90 ml PO ONETIME ONE Stop: 03/14/17 20:55 Last Admin: 03/14/17 21:27 Dose: 90 ml Hydromorphone HCl (Dilaudid) 1 mg IVPUSH ONETIME ONE Stop: 03/14/17 19:14 Last Admin: 03/14/17 19:27 Dose: 1 mg Hydromorphone HCl (Dilaudid) 1 mg IVPUSH ONETIME ONE Stop: 03/14/17 21:07 Last Admin: 03/14/17 21:20 Dose: 1 mg Sodium Chloride (Normal Saline) 1,000 mls @ 999 mls/hr IV ASDIRECTED [facility] Last Admin: 03/14/17 19:24 Dose: 999 mls/hr Sodium Chloride (Normal Saline) 1,000 mls @ 999 mls/hr IV ONETIME ONE Stop: 03/14/17 22:06 Last Admin: 03/14/17 21:20 Dose: 999 mls/hr Lactated Ringer's (Ringers, Lactated) 1,000 mls @ 150 mls/hr IV ASDIRECTED [facility] Last Admin: 03/16/17 10:00 Dose: 150 mls/hr Iopamidol (Isovue-370 (76%)) 100 ml IVPUSH ONETIME ONE Stop: 03/14/17 20:55 Last Admin: 03/14/17 21:27 Dose: 100 ml Ondansetron HCl (Zofran) 4 mg IVPUSH ONETIME ONE Stop: 03/14/17 19:14 Last Admin: 03/14/17 19:25 Dose: 4 mg Sodium Chloride (Saline Flush) 10 ml FLUSH ONETIME PRN PRN Reason: IV FLUSH Last Admin: 03/14/17 21:28 Dose: 10 ml - Problem List Review Problem List Initiated/Reviewed/Updated: Yes - My Orders Last 24 Hours: My Active Orders 03/16/17 13:07 NG [Nasogastric Orogastric Tube Removal] [OM.PC] Urgent 03/16/17 13:15 Lactated Ringers [Ringers, Lactated] 1,000 ml IV ASDIRECTED 03/17/17 10:55 Ready for Discharge [RC] PER UNIT ROUTINE - Plan Plan:: h&P dictated NEFTALI transfer summary dictated NEFTALI
[2017-03-17] MEDS: HYDROmorphone 0.5 MG/0.5 ML Syringe IVPUSH PRN (11:16)
--- NOTE | 2017-03-18 07:35 | DISCH ---
ADMISSION DATE: 03/14/2017 DISCHARGE DATE: 03/17/2017 HISTORY: This is a 26-year-old, who presented a week ago in the emergency room with abdominal pain, quite severe, elevated white count 16,000, distended abdomen, evidence of small bowel obstruction and a CT scan suggesting internal hernia. He underwent laparoscopy and then a laparotomy derotation of a bowel with running of the bowel. No evidence of Crohn disease was noted. The patient's postoperative course at that time was uneventful, and he was discharged in about 4 days. Seen in the clinic, wound healed, arthur removed. The patient did return to the clinic on the 14 of March with recurrence of his symptoms. Examination at that time showed abdominal distention, mild tenderness. Wound had healed per primum. Lungs and heart were unremarkable as was the upper and lower extremities. HOSPITAL COURSE: The patient was placed on NG suction and his condition improved. This was removed the following day and he has continued to have cramps, poor appetite, but his stooling having some rectal bleeding. The patient's condition was felt not to be progressing along the lines that was agreeable to both physician and doctor and transfer was effected looking for enteroscopies for gastroenterology and radiological procedures, small bowel follow-through. He is still on IV fluids. TRANSFER DIAGNOSES: 1. Incomplete small bowel obstruction persistent. 2. He is nothing by mouth. 3. Unable to work. DISCHARGE MEDICATIONS: As per medication reconciliation form. CONDITION ON TRANSFER: Stable. MARY /[id number]
== END 2017-03-17 12:15 | DRG 247 ==
LOC: JD.ED 18:37 → JD.MS 22:28
PROVIDERS: ADMIT Surgery; ATTEND Surgery
PROC: 0D9670Z Drainage of Stomach with Drainage Device, Via Natural or Artificial Opening (ICD-10-PCS; principal; 2017-03-14)
DX: K56.60 Unspecified intestinal obstruction (principal); R10.31 Right lower quadrant pain; N50.812 Left testicular pain; N43.3 Hydrocele, unspecified; N50.3 Cyst of epididymis
CPT/HCPCS: 36415; 43752; 74020; 74020-26; 74177; 74177-26; 76870; 76870-26; 80048; 80053; 81001; 83690; 85025; 86140; 87040; 93975; 96361; 96374; 96375; 96376; 99284; 99285-25; A9270-GY; J1170; J1885; J2405; J7040; J7050; J7120; Q9963; Q9967

== ENCOUNTER 2021-11-06 02:59 | Inpatient (IN) | payer BC ==
[2021-11-06] MEDS ORDERED: Ondansetron 4 MG/2 ML SDV IVPUSH ONE (03:42)
[2021-11-06] MEDS ORDERED: HYDROmorphone 1 MG/ML Syringe IVPUSH STA (03:42)
[2021-11-06] MEDS ORDERED: Iopamidol 612 MG/ML 100 ML Bottle IVPUSH ONE (03:48)
[2021-11-06] MEDS ORDERED: Sodium Chloride 0.9% 10 ML SDV FLUSH ONE (03:48)
[2021-11-06] MEDS: Sodium Chloride 0.9% 1,000 ML IV SCH ×2 (03:52→10:57)
[2021-11-06] MEDS ORDERED: Ondansetron 4 MG/2 ML SDV IVPUSH PRN (06:44)
[2021-11-06] MEDS ORDERED: HYDROmorphone 1 MG/ML Syringe IVPUSH PRN (06:44)
[2021-11-06] MEDS ORDERED: HYDROmorphone 0.5 MG/0.5 ML Syringe IVPUSH PRN (11:10)
[2021-11-06] MEDS ORDERED: Ketorolac 30 MG/ML SDV IVPUSH ONE (11:15)
[2021-11-06] MEDS ORDERED: Benzocaine 20% Topical Spray UD MUCMEM PRN (12:57)
[2021-11-06 16:26] VITALS: BP 135/88; PULSE 92
[2021-11-07] MEDS ORDERED: Enoxaparin 40 MG/0.4 ML Syringe SUBCUT SCH (09:00)
== END 2021-11-06 18:20 | disposition home or self-care (01) | DRG 247 ==
LOC: JD.ED 02:59 → JD.MS 06:44
PROVIDERS: ADMIT Pediatrics; ATTEND Pediatrics
DX: K56.50 Intestinal adhesions [bands], unspecified as to partial versus complete obstruction (principal); F41.9 Anxiety disorder, unspecified; Z86.16 Personal history of COVID-19
CPT/HCPCS: 36415; 43752; 71045; 71045-26; 74177; 74177-26; 80053; 81001; 85007; 85027; 96374; 96375; 99285-25; A9270-GY; J1170; J1885; J2405; J7030; Q9967

== ENCOUNTER 2022-05-07 15:04 | Emergency (ER) | payer BC ==
[2022-05-07] MEDS ORDERED: Sodium Chloride 0.9% 10 ML Syringe FLUSH PRN (15:58)
[2022-05-07] MEDS ORDERED: Sodium Chloride 0.9% 500 ML IV ONE (16:19)
[2022-05-07 17:37] LABS: ESTIMATED GFR 83 mL/min (>60)
[2022-05-07 18:22] VITALS: BP 146/99; PULSE 105
== END 2022-05-07 20:10 | disposition home or self-care (01) ==
LOC: JD.ED 15:04
DX: R07.89 Other chest pain (principal); Z86.16 Personal history of COVID-19
CPT/HCPCS: 36415; 71045; 80053; 83735; 84443; 84484; 85025; 85379; 86140; 93005; 96360; 99285; J3490; J7030; 93010; 93246; 99284

== ENCOUNTER 2025-07-02 14:23 | Emergency (ER) | payer BC ==
[2025-07-02] MEDS ORDERED: Sodium Chloride 0.9% 10 ML Syringe FLUSH PRN (17:39)
[2025-07-02 18:21] LABS: BASOPHILS ABSOLUTE AUTO 0.1 K/mm3 (0.0-0.2); BASOPHILS PERCENT AUTO 0.8 % (0.0-1.0); EOSINOPHILS ABSOLUTE AUTO 0.1 K/mm3 (0.0-0.4); EOSINOPHILS PERCENT AUTO 0.5 % (0.0-6.0); IMMATURE GRAN ABSOLUTE AUTO 0.02 K/mm3 (0.00-0.05); IMMATURE GRAN PERCENT AUTO 0.2 % (0.0-0.4); LYMPHOCYTES ABSOLUTE AUTO 2.1 K/mm3 (1.0-4.8); LYMPHOCYTES PERCENT AUTO 23.0 % (24.0-44.0); MEAN PLATELET VOLUME 11.3 fl (9.4-12.4); MONOCYTES ABSOLUTE AUTO 0.5 K/mm3 (0.0-0.8); MONOCYTES PERCENT AUTO 5.5 % (0.0-8.0); NEUTROPHILS ABSOLUTE AUTO 6.4 K/mm3 (1.8-7.7); NEUTROPHILS PERCENT AUTO 70.0 % (41.0-71.0); NRBC ABSOLUTE 0.00 (0.00-0.02); NRBC PERCENT 0.0 % (0.0-0.2); PLATELET COUNT,PLT 224 K/mm3 (150-400); RED BLOOD CELL COUNT 6.16 M/mm3 (4.52-5.90); WHITE BLOOD CELL COUNT,WBC 9.19 K/mm3 (3.9-11.3)
[2025-07-02 18:50] LABS: A/G RATIO 1.2 (1-2); ALANINE AMINOTRANSFERASE,ALT 50.0 U/L (16-63); ASPARTATE AMNIOTRANSFERASE,AST 26.0 U/L (15-37); BILIRUBIN TOTAL 0.5 mg/dL (0.2-1.0); BLOOD UREA NITROGEN,BUN 12.0 mg/dL (7-18); CARBON DIOXIDE,CO2 28.0 mEq/L (21-32); CHLORIDE,CL 103.0 mEq/L (98-107); CREATININE 1.1 mg/dL (0.7-1.3); EST CRCL DRUG DOSING (CG) 101.73 mL/min; ESTIMATED GFR 91.0 mL/min (>60); GLUCOSE RANDOM 97.0 mg/dL (70-99); PHOSPHORUS 3.5 mg/dL (2.6-4.7); PROTEIN TOTAL,TP 8.1 g/dl (6.4-8.2); SODIUM,NA 142.0 mEq/L (136-145)
[2025-07-02 18:53] LABS: LACTIC ACID 1.4 mmol/L (0.4-2.0)
[2025-07-02 18:58] LABS: POTASSIUM,K 4.3 mEq/L (3.5-5.1)
[2025-07-02 19:23] LABS: APPEARANCE,URINE CLEAR (Clear); GLUCOSE,URINE NEGATIVE (Negative); OCCULT BLOOD,URINE NEGATIVE (Negative)
[2025-07-02 19:58] VITALS: BP 153/95; PULSE 98
== END 2025-07-02 19:46 | disposition home or self-care (01) ==
LOC: JD.ED 14:23
DX: G44.209 Tension-type headache, unspecified, not intractable (principal); F17.200 Nicotine dependence, unspecified, uncomplicated
CPT/HCPCS: 36415; 70450; 70450-26; 71045; 71045-26; 80053; 81003; 83605; 83735; 84100; 85025; 93005; 93010; 99283; 99284